=== PATIENT | female | born 1955 | race Caucasian/White ===

== ENCOUNTER 2020-04-07 18:15 | Inpatient (IN) | payer MEDICARE, MEDICAID ==
[~2020-04-07] VITALS: Ht 165.1 cm; Wt 62.5 kg
[2020-04-07] MEDS ORDERED: HYDRALAZINE HCL50 MG PO (18:34)
[2020-04-07] MEDS ORDERED: GLUCOPHAGE500 MG PO (18:34)
[2020-04-07] MEDS ORDERED: SEROQUEL25 MG PO (18:34)
[2020-04-07] MEDS ORDERED: ABILIFY10 MG PO (18:36)
[2020-04-07] MEDS ORDERED: ASPIRIN81 MG PO (18:36)
[2020-04-07] MEDS ORDERED: FLUTICASONE PRO16 GM NASAL (18:37)
[2020-04-07] MEDS ORDERED: LASIX40 MG PO (18:37)
[2020-04-07] MEDS ORDERED: LIPITOR10 MG PO (18:37)
[2020-04-07] MEDS ORDERED: POTASSIUM CHLO10 ME1 PO (18:38)
[2020-04-07] MEDS ORDERED: ZOFRAN4 MG PO (18:38)
[2020-04-07 20:00] VITALS: BP 133/70
[2020-04-07 20:43] LABS: BASOPHILS 0.9 % (0-2); EOSINOPHILS 0.3 % (0-7); HEMATOCRIT 33.2 % (36.0-48.0); HEMOGLOBIN 10.4 g/dL (12-16); IMMATURE GRANULOCYTES 0.4 % (0-5); LYMPHOCYTE ABS# 0.54 10x3/uL (1.18-3.74); LYMPHOCYTES 4.9 % (15-50); MCHC 31.3 g/dL (31.0-37.0); MCV 89.5 fL (80.0-100.0); MEAN PLATELET VOLUME 10.3 fL (7.4-10.4); MONOCYTES 9.1 % (2-11); NEUTROPHIL ABS# 9.22 10x3/uL (1.56-6.13); NEUTROPHILS 84.4 % (40-80); PLATELET COUNT 402 10x3/uL (130-400); RBC 3.71 10x6/uL (4.00-5.40); RDW 14.2 % (11.5-14.5); WBC 10.9 10x3/uL (4.8-10.8)
[2020-04-07 20:47] LABS: APTT 26.3 SECONDS (22.8-39.4); INR 1.28 (0.85-1.17); PROTIME 14.8 SECONDS (11.6-15.0)
[2020-04-07 21:00] VITALS: BP 124/55
[2020-04-07 21:09] LABS: ALBUMIN 3.5 g/dL (3.4-5.0); BILIRUBIN - TOTAL 0.3 mg/dL (0.2-1.3); CALCIUM 9.6 mg/dL (8.5-10.1); CREATININE - SERUM 11.1 mg/dL (0.6-1.3); MAGNESIUM - SERUM 3.1 mg/dL (1.8-2.4); PHOSPHOROUS 5.2 mg/dL (2.5-4.9); THYROID STIMULATING HORMONE 1.48 uIU/mL (0.36-3.74); TROPONIN-I 0.059 ng/mL (0.000-0.060)
[2020-04-07 21:11] LABS: ANION GAP 21.7 mmol/L (8-16)
[2020-04-07 21:12] LABS: POTASSIUM - SERUM 6.7 mmol/L (3.5-5.1)
[2020-04-07 22:00] VITALS: BP 122/68
[2020-04-07 23:00] VITALS: BP 133/70
[2020-04-07 23:36] LABS: UDS - AMPHET NEGATIVE QUAL (NEGATIVE); UDS - BARB NEGATIVE QUAL (NEGATIVE); UDS - BENZO NEGATIVE QUAL (NEGATIVE); UDS - COCAINE NEGATIVE QUAL (NEGATIVE); UDS - OPIATE NEGATIVE QUAL (NEGATIVE); UDS - PCP NEGATIVE QUAL (NEGATIVE); UDS - THC NEGATIVE QUAL (NEGATIVE)
[2020-04-07 23:44] LABS: BILIRUBIN NEGATIVE (NEGATIVE); KETONE NEGATIVE (NEGATIVE); NITRITE NEGATIVE (NEGATIVE); UROBILINOGEN NORMAL mg/dL (< 2)
[2020-04-07 23:45] LABS: BACTERIA MODERATE HPF (NONE SEEN); GRANULAR CAST 0-5 LPF (NONE SEEN); WHITE CELLS - URINE 50 HPF (0-4)
[2020-04-08] VITALS (21 sets, daily range): BP systolic 120–195; BP diastolic 67–100; BMI 21.6
[2020-04-08 07:22] LABS: % SATURATION 21 % (15-55); IRON 32 ug/dl (35-150); TOTAL IRON BIND CAPACITY 147 ug/dl (260-445); UNSAT IRON BIND CAPACITY 115 ug/dl (150-375)
[2020-04-08 07:27] LABS: BASOPHILS 0.9 % (0-2); EOSINOPHILS 0.3 % (0-7); HEMATOCRIT 29.2 % (36.0-48.0); HEMOGLOBIN 9.3 g/dL (12-16); IMMATURE GRANULOCYTES 0.6 % (0-5); LYMPHOCYTE ABS# 0.74 10x3/uL (1.18-3.74); LYMPHOCYTES 7.6 % (15-50); MCH 27.7 pg (26.0-34.0); MCHC 31.8 g/dL (31.0-37.0); MEAN PLATELET VOLUME 10.3 fL (7.4-10.4); MONOCYTES 14.1 % (2-11); NEUTROPHIL ABS# 7.41 10x3/uL (1.56-6.13); NEUTROPHILS 76.5 % (40-80); PLATELET COUNT 361 10x3/uL (130-400); RBC 3.36 10x6/uL (4.00-5.40); RDW 14.1 % (11.5-14.5); WBC 9.7 10x3/uL (4.8-10.8)
[2020-04-08 07:28] LABS: MCV 86.9 fL (80.0-100.0)
[2020-04-08 07:54] LABS: ALBUMIN 3.1 g/dL (3.4-5.0); BILIRUBIN - TOTAL 0.2 mg/dL (0.2-1.3); CALCIUM 9.5 mg/dL (8.5-10.1); CREATININE - SERUM 9.9 mg/dL (0.6-1.3); MAGNESIUM - SERUM 2.9 mg/dL (1.8-2.4); PHOSPHOROUS 3.9 mg/dL (2.5-4.9); PROTEIN - SERUM 6.9 g/dL (6.4-8.2); THYROID STIMULATING HORMONE 1.52 uIU/mL (0.36-3.74)
--- NOTE | 2020-04-08 07:56 | NUR ---
ATTEMPTED TO CALL REPORT, STATES NURSE WILL CALL WHEN SHE IS ABLE TO ACCEPT PATIENT.
--- NOTE | 2020-04-08 07:57 | NUR ---
CRITICAL LAB TAKEN FROM BETTIE, TROPONIN 1.963, BUN 144, CHLORIDE 124.
[2020-04-08 07:59] LABS: CARBON DIOXIDE 24.5 mmol/L (21.0-32.0); POTASSIUM - SERUM 5.5 mmol/L (3.5-5.1)
[2020-04-08 08:01] LABS: TROPONIN-I 1.963 ng/mL (0.000-0.060)
--- NOTE | 2020-04-08 12:23 | NUR ---
BOLUS COMPLETE. PATIENT RESTING IN BED, NAD, ORIENTED X 0.
--- NOTE | 2020-04-08 13:47 | NUR ---
GAVE REPORT TO LETY PALACIOS IN ICU. STOPPED REPORT AND STATES THAT SHE HAS A PATIENT IN NEED OF HER ATTENTION AND THAT I CAN BRING THE PATIENT AND "TELL HER ANYTHING ELSE AT BEDSIDE REPORT". CHARGE NOTIFIED, WILL GATHER PATIENT AND TAKE HER TO ICU AT THIS TIME.
[2020-04-08] MEDS ORDERED: HYDRALAZINE HCL50 MG PO (14:47)
[2020-04-08] MEDS ORDERED: SEROQUEL25 MG PO (14:50)
[2020-04-08] MEDS ORDERED: SEROQUEL XR50 MG PO (14:53)
[2020-04-08] MEDS ORDERED: ZOFRAN4 MG PO (14:56)
[2020-04-08] MEDS ORDERED: BAYER CHEWABLE81 MG PO (14:57)
[2020-04-08] MEDS ORDERED: ABILIFY10 MG PO (14:59)
[2020-04-08 15:27] LABS: CREATININE - URINE 42.4 mg/dL (30-125); PRO/CRE RATIO URINE 4.4 mg/g; PROTEIN - URINE 187.9 mg/dL (0.0-11.9)
--- NOTE | 2020-04-08 17:11 | NUR ---
1400- REC'D PT TO ICU, ALL MONITORING EQUIPMENT ATTACHED AND ALARMS SET. PT BATHED. VSS.
[2020-04-08 17:33] LABS: ANION GAP 19.7 mmol/L (8-16); CALCIUM 8.9 mg/dL (8.5-10.1); CARBON DIOXIDE 22.5 mmol/L (21.0-32.0); CREATININE - SERUM 9.1 mg/dL (0.6-1.3); POTASSIUM - SERUM 5.2 mmol/L (3.5-5.1)
--- NOTE | 2020-04-08 17:52 | NUR ---
REPORTED LABS/BUN AND NA+ TO DR BOWLING.
--- NOTE | 2020-04-08 19:30 | NUR ---
REC'D PT RESTING IN BED ON ROOM AIR EYES CLOSED, AWAKENS TO VERBAL STIMULI, SOME WORDS ARE CLEAR OTHERS SEEM GARBLED, PT IS CONFUSED, RIGHT WRIST PIV D5W @ 125CC/HR, COOPER PATENT DRAINING CLEAR YELLOW URINE, MAEE, FOLLOWS COMMANDS, BED IN LOW POSITION, CALL LIGHT IN REACH.
--- NOTE | 2020-04-08 21:00 | NUR ---
EVENING MEDS GIVEN, PT CUSSING AT NURSE WHILE ATTEMPTING TO PLACE BACTROBAN IN NARES, SWATTING AT HANDS.
--- NOTE | 2020-04-08 22:30 | NUR ---
PT PULLING GOWN OFF AND PULLING AT OTHER LINEN, LARGE LIQUID BROWN STOOL NOTED, PARTIAL BATH AND LINEN CHANGE PROVIDED, COOPER CARE GIVEN, PT TOLERATED WELL, REPOSITIONED FOR COMFORT, BP ELEVATED, WILL GIVE PRN BP MEDICATION.
[2020-04-09] VITALS (22 sets, daily range): BP systolic 117–190; BP diastolic 54–94; BMI 21.9
--- NOTE | 2020-04-09 03:30 | NUR ---
PT RESTING IN BED, EYES CLOSED, RESP EVEN AND UNLABORED, BP IMPROVED AFTER PRN DOSE, WILL CONT TO MONITOR FOR CHANGES.
[2020-04-09 05:26] LABS: BASOPHILS 1.1 % (0-2); EOSINOPHILS 2.4 % (0-7); HEMATOCRIT 27.9 % (36.0-48.0); HEMOGLOBIN 8.9 g/dL (12-16); IMMATURE GRANULOCYTES 1.2 % (0-5); LYMPHOCYTE ABS# 0.87 10x3/uL (1.18-3.74); LYMPHOCYTES 11.7 % (15-50); MCH 27.7 pg (26.0-34.0); MCHC 31.9 g/dL (31.0-37.0); MCV 86.9 fL (80.0-100.0); MEAN PLATELET VOLUME 10.4 fL (7.4-10.4); MONOCYTES 12.7 % (2-11); NEUTROPHIL ABS# 5.26 10x3/uL (1.56-6.13); NEUTROPHILS 70.9 % (40-80); PLATELET COUNT 310 10x3/uL (130-400); RBC 3.21 10x6/uL (4.00-5.40); RDW 14.2 % (11.5-14.5); WBC 7.4 10x3/uL (4.8-10.8)
[2020-04-09 05:39] LABS: ALBUMIN 2.6 g/dL (3.4-5.0); BILIRUBIN - TOTAL 0.19 mg/dL (0.2-1.3); CALCIUM 8.4 mg/dL (8.5-10.1); CREATININE - SERUM 8.3 mg/dL (0.6-1.3); MAGNESIUM - SERUM 2.3 mg/dL (1.8-2.4); PHOSPHOROUS 3.5 mg/dL (2.5-4.9)
[2020-04-09 05:40] LABS: ANION GAP 17.3 mmol/L (8-16); POTASSIUM - SERUM 4.3 mmol/L (3.5-5.1)
--- NOTE | 2020-04-09 08:00 | NUR ---
LABS IMPROVING. PT CONFUSED. VSS.
[2020-04-09 09:21] LABS: CKMB 4.3 U/L (0.0-3.6); CREATINE KINASE 298 UL (21-215)
[2020-04-09 09:23] LABS: TROPONIN-I 4.599 ng/mL (0.000-0.060)
[2020-04-09 15:20] LABS: CKMB 3.6 U/L (0.0-3.6); CREATINE KINASE 333 UL (21-215)
[2020-04-09 15:28] LABS: TROPONIN-I 3.595 ng/mL (0.000-0.060)
--- NOTE | 2020-04-09 15:28 | NUR ---
PT STAYING ASLEEP ALL DAY. CHANGED SEROQUEL TO HS.
[2020-04-09 20:44] LABS: CKMB 2.4 U/L (0.0-3.6); CREATINE KINASE 310 UL (21-215)
[2020-04-09 20:46] LABS: TROPONIN-I 1.828 ng/mL (0.000-0.060)
[2020-04-10] VITALS (24 sets, daily range): BP systolic 109–173; BP diastolic 49–97
[2020-04-10 06:12] LABS: BASOPHILS 0.8 % (0-2); EOSINOPHILS 1.6 % (0-7); HEMATOCRIT 29.3 % (36.0-48.0); HEMOGLOBIN 9.2 g/dL (12-16); IMMATURE GRANULOCYTES 1.7 % (0-5); LYMPHOCYTES 17.4 % (15-50); MCH 27.4 pg (26.0-34.0); MCHC 31.4 g/dL (31.0-37.0); MCV 87.2 fL (80.0-100.0); MEAN PLATELET VOLUME 10.9 fL (7.4-10.4); MONOCYTES 11.2 % (2-11); NEUTROPHIL ABS# 4.27 10x3/uL (1.56-6.13); NEUTROPHILS 67.3 % (40-80); PLATELET COUNT 293 10x3/uL (130-400); RBC 3.36 10x6/uL (4.00-5.40); WBC 6.3 10x3/uL (4.8-10.8)
[2020-04-10 06:16] LABS: ALBUMIN 2.6 g/dL (3.4-5.0); ANION GAP 13.9 mmol/L (8-16); BILIRUBIN - TOTAL 0.17 mg/dL (0.2-1.3); CALCIUM 8.5 mg/dL (8.5-10.1); CREATININE - SERUM 7.1 mg/dL (0.6-1.3); PHOSPHOROUS 3.5 mg/dL (2.5-4.9); POTASSIUM - SERUM 3.9 mmol/L (3.5-5.1)
--- NOTE | 2020-04-10 11:16 | NUR ---
AM MEDS GIVEN IN APPLESAUCE WITHOUT DIFFICULTY, ATE EGGS WITH BREAKFAST, DISCUSSED WITH DR BOWLING THAT PT HAD NO DIFFICULTY SWALLOWING BUT DID SPIT FOOD OUT AT TIMES, MECH SOFT DIET ORDERED FOR LUNCH DURING CHG BATH PT BEGAN COUGHING ON ORAL SECRETIONS, ORAL SUCTIONING PROVIDED AND SPEECH CONSULTED
--- NOTE | 2020-04-10 18:01 | NUR ---
1530 PIV NOTED TO BE LEAKING AROUND SITE, DCD AND RESITED TO LAC
[2020-04-11] VITALS (17 sets, daily range): BP systolic 110–184; BP diastolic 54–95
--- NOTE | 2020-04-11 03:18 | NUR ---
PT UNABLE TO SLEEP. CONFUSED AND PULLING OFF MONITORING EQUIPMENT. ATTEMPT TO REORIENT UNSUCCESSFULLY. PT THINKS SHE IS AT SOMEONES HOME AND THAT THE PERSON THAT BROUGHT HER LEFT HER HERE AND LEFT WITHOUT HER. PT HAS EATEN ONE PUDDING, PER REQUEST.
[2020-04-11 04:33] LABS: BASOPHILS 0.9 % (0-2); EOSINOPHILS 1.9 % (0-7); HEMATOCRIT 27.7 % (36.0-48.0); HEMOGLOBIN 8.9 g/dL (12-16); LYMPHOCYTE ABS# 1.21 10x3/uL (1.18-3.74); LYMPHOCYTES 20.6 % (15-50); MCH 27.7 pg (26.0-34.0); MCHC 32.1 g/dL (31.0-37.0); MCV 86.3 fL (80.0-100.0); MEAN PLATELET VOLUME 10.2 fL (7.4-10.4); MONOCYTES 7.2 % (2-11); NEUTROPHIL ABS# 4.02 10x3/uL (1.56-6.13); NEUTROPHILS 68.4 % (40-80); PLATELET COUNT 245 10x3/uL (130-400); RBC 3.21 10x6/uL (4.00-5.40); RDW 13.7 % (11.5-14.5); WBC 5.9 10x3/uL (4.8-10.8)
--- NOTE | 2020-04-11 04:59 | NUR ---
PT PULLED LEFT AC IV OUT. FLUIDS STOPPED AND FLOOR DRIED. ATTEMPT X1 MADE TO PLACE IV UNSUCCESSFUL DUE TO PT CONFUSION AND BECOMING AGITATED, WILL REATTEMPT WHEN PT CALM.
[2020-04-11 05:17] LABS: ALBUMIN 2.7 g/dL (3.4-5.0); ANION GAP 14.5 mmol/L (8-16); BILIRUBIN - TOTAL 0.11 mg/dL (0.2-1.3); CALCIUM 8.5 mg/dL (8.5-10.1); CARBON DIOXIDE 22.3 mmol/L (21.0-32.0); CREATININE - SERUM 6.5 mg/dL (0.6-1.3); PHOSPHOROUS 4.3 mg/dL (2.5-4.9); POTASSIUM - SERUM 3.8 mmol/L (3.5-5.1); PROTEIN - SERUM 6.1 g/dL (6.4-8.2)
--- NOTE | 2020-04-11 07:17 | NUR ---
IV REATTEMPTED WITHOUT SUCCESS. ON COMING STAFF MADE AWARE.
--- NOTE | 2020-04-11 10:00 | NUR ---
SPOKE W/ DAVID SAM, W/ NEPHRO. PT PULLED HER IV OUT OVERNIGHT AND HAS IV ROCEPHIN ORDERED. SHE OKS IV OUT AND ORDERS PO ABX FOR SUSPECTED UTI.
--- NOTE | 2020-04-11 11:32 | NUR ---
DR. HARESH ARRIAGA. D/C TO [place]LOOR VS D/C BACK TO [place]. REPORTS HE WILL CALL HER DAUGHTER TO DECIDE.
--- NOTE | 2020-04-11 14:30 | CN ---
PATIENT NAME:KRISTI WRIGHT MEDICAL RECORD: [id number] : 59 LOCATION:BREA.2307 ADMIT DATE: 04/07/20 ACCOUNT: [id number] CONSULTING PHYSICIAN: CODI SETHI MD REFERRING PHYSICIAN: SPIKE DANG MD DATE OF CONSULTATION: 04/10/2020 HISTORY OF PRESENT ILLNESS: A 64-year-old female with a history of chronic renal insufficiency, resident of long-term care facility, was transferred from [place] with altered mental status, was found to have worsening renal insufficiency as well as non-ST elevation myocardial infarction with elevated troponin. She has history of hypertension, poor historian, questionable chest pain. We are asked to see her concerning her cardiovascular status. PAST MEDICAL HISTORY: Includes; 1. History of chronic renal insufficiency. 2. Hypertension. 3. Bipolar disorder. 4. Schizophrenia. 5. Dyslipidemia. MEDICATIONS: Include atorvastatin 10 mg p.o. every day, hydralazine 50 b.i.d., Seroquel 12.5 every day, Abilify 10 mg p.o. every day, aspirin 81 every day, Lasix 40 every day, metformin 500 b.i.d. SOCIAL HISTORY: Lives in a long-term care facility, nonsmoker, nondrinker. PHYSICAL EXAMINATION: GENERAL: No acute distress, appears stated age. VITAL SIGNS: Blood pressure 172/97, pulse 92 and regular. HEENT: Normocephalic, atraumatic. NECK: No bruits noted. HEART: Regular, II/ systolic ejection murmur. LUNGS: Actually, good air excursion. ABDOMEN: Soft, nontender. EXTREMITIES: Pulses are well preserved, 2+. There was no edema. IMPRESSION AND PLAN: Non-ST elevation myocardial infarction, difficult to assess if this is type 1 versus type 2. Certainly, the patient has refused dialysis in the past and contrast carries at this creatinine level significant risk of contrast nephropathy. Empirically placed on beta blockade, antiplatelets. Depending on further situation, i.e., dialysis could consider angiography with intervention at that point. TRANSINT:[id number] Voice Confirmation ID: [id number] DOCUMENT ID: [id number] CODI SETHI MD at 1430 CC: [id number] DICTATION DATE: 04/10/20 1015 COFFEE MAKER: 04/10/20 1322 ADM IN [facility] [address] [facility] [place] [address]
--- NOTE | 2020-04-11 14:30 | EC ---
PATIENT:KRISTI WRIGHT DATE OF SERVICE: 04/07/20 SEX: F MEDICAL RECORD: [id number] DATE OF : 59 LOCATION:[facility] D230 AGE OF PATIENT: 64 ADMISSION DATE: 04/07/20 REFERRING PHYSICIAN: INTERPRETING PHYSICIAN: CODI SETHI MD ECHOCARDIOGRAM REPORT ECHO CHARGES 4 ECHO COMPLETE Date: 04/10/20 CLINICAL DIAGNOSIS: CMP ECHOCARDIOGRAPHIC MEASUREMENTS (adult normal given) AC root (d.<3.7cm) 2.6 cm LV Septum d (<1.2 cm> 1.2 cm Valve Excursion 1.6 cm LV Septum (systole) 1.6 cm Left Atria (s.<4.0cm> 3.6 cm LVPW d(<1.2cm) 0.9 cm RV (d.<2.3cm) 2.2 cm LVPW (sytole) 1.1 cm LV diastole(<5.6CM) 5.2 cm MV E-F(>70mm/sec) cm LV systole 4.4 cm LVOT Diameter 1.8 cm MV exc.(>10mm) 1.0 cm Est.ejection fraction (50-75%) % DOPPLER: LVIT cm/sec A 113 cm/sec E 65 cm/sec LA 81 cm/sec RVSP 21 mmHg LVOT cm/sec AOP1/2T m/s Asc. Ao 116 cm/sec RVOT 83 cm/sec RA cm/sec PA 101 cm/sec AV Gradient Peak 5.4 mmHg AV Mean 2.9 mmHg AV Area 1.7 cm MV Gradient Peak 7.1 mmHg MV Mean 2.5 mmHg MV Area cm COMMENTS: Senior Sql Database Developer: Ya INIGUEZANGIE ABISAI Preforming Machine Operator: 3 Dr. Nolasco TAPE# Pericardial Effusion N DATE OF SERVICE: Adequate 2D, color flow imaging, spectral Doppler, and M-Mode. LVH is present. LV internal dimensions are normal. Wall motion normal. EF greater than or equal to 55%. Aortic valve is tricuspid. No evidence of stenosis by Doppler interrogation. Left atrium is normal at 3.6 cm. Mitral valve shows no prolapse. Trace MR. Right-sided chambers are grossly normal. Trace TR. ECHOCARDIOGRAM REPORT [id number] KRISTI WRIGHT TRANSINT:[id number] Voice Confirmation ID: [id number] DOCUMENT ID: [id number] CODI SETHI MD at 1430 CC: [id number] DICTATION DATE: 04/10/20 1638 CLINICAL BIOCHEMIST: 04/10/20 2321 ADM IN [place] [id number] [place] [id number]
--- NOTE | 2020-04-11 18:51 | MORECARE ---
CASE MANAGEMENT DISCHARGE SUMMARY PATIENT: KRISTI WRIGHT UNIT: [id number] ADM DATE: 04/07/20 AGE: 64 : 59 SEX: F ROOM/BED: D.2307 AUTHOR: REGINO ALEXANDER PHYSICIAN: REFERRING PHYSICIAN: SPIKE DANG MD DATE OF SERVICE: 04/11/20 Discharge Plan Patient Name: KRISTI WRIGHT Facility: [facility]:[place] : 1955 Planned Disposition: [facility] Facility Anticipated Discharge Date: Discharge Date: Expected LOS: Initial Reviewer: [email or web address] Initial Review Date: 04/07/2020 Generated: 04/11/20 7:50 pm Patient Name: KRISTI WRIGHT Page [phone] at 1851 All edits/amendments must be made on the electronic document DICTATION DATE: 04/11/201849 CELERY STRIPPER: KASIE 04/11/201849 RPT#: [id number] DC DATE: STATUS: ADM IN [facility] [address] [place] [address] END OF REPORT
--- NOTE | 2020-04-11 19:04 | MORECARE ---
CASE MANAGEMENT DISCHARGE SUMMARY PATIENT: KRISTI WRIGHT UNIT: [id number] ADM DATE: 04/07/20 AGE: 64 : 59 SEX: F ROOM/BED: D.2307 AUTHOR: REGINO ALEXANDER PHYSICIAN: REFERRING PHYSICIAN: SPIKE DANG MD DATE OF SERVICE: 04/11/20 Discharge Plan Patient Name: KRISTI WRIGHT Facility: [facility]:[place] : 1955 Planned Disposition: Senior Living Facility Anticipated Discharge Date: Discharge Date: Expected LOS: Initial Reviewer: [email or web address] Initial Review Date: 04/07/2020 Generated: 04/11/20 8:03 pm Comments DCP- Discharge Planning Updated by [email or web address]: Cheryl Rosado on 04/11/20 6:[address] Patient Name: KRISTI WRIGHT Admission Status: ER Accout number: [id number] Admission Date: 04-07-2020 : 1955 Admission Diagnosis:ACUTE KIDNEY FAILURE, UNSPECIFIED Attending: SPIKE CORBETT Current LOS: 4 Anticipated DC Date: Planned Disposition: Senior Living Facility Primary Insurance: MEDICARE PART A ONLY Discharge Planning Comments: CM called and spoke with patient's daughter about discharge planning. CM explained that the physicians have attempted to call her, but were not able to leave her a voice message because her voice mail box is full. Daughter states that patient was just recently admitted to [facility] for rehab. States patient just recently became confused. Daughter states she is a Psychiatrist and knows the difference between Dementia and Delirium and the course of treatment for both conditions. States that if her mother has Dementia it is in the early stages. States she believes the patient is suffering from Delirium. States that patient's current state of confusion is not her baseline. States patient was still able to give people the daughter's phone number from memory just two weeks ago. Daughter went on to explain that she thinks the patient is over medicated. States that the patient was not taking her mediations. That she was hiding them in her bed. And that because she was not responding to the current dosage of her medications that the hospital increased the dosage. States the rehab discovered the patient was hiding her medications so they started crushing the patient's medications and put them in her food. States that because the patient hadn't taken her mediations in so long and that the dosage had been increased over the course of treatment at the hospital this may have caused the patient to be over-medicated. States that is also why the patient started refusing to eat at the rehab, because they were putting her medication in her food. Daughter would like to speak with patient's renal doctor and with Dr. Lima tomorrow if at all possible to discuss her care. States she has an appointment from 11-11:45 and another at 15:30. But any time other than that will be acceptable. Daughter, Dr. Laya Alfred may be reached at [phone]. Daughter has also informed CM that when patient is medically stable and ready for discharge from the hospital that she wants patient moved to a SNF closer to [place] so she won't be as far away from where daughter lives. SUPRIYA completed for "Any SNF close to [place]". Copy on chart. CM will continue to follow and assist as needed with discharge planning / needs. Car Salesman: Cheryl Rosado Last DP export: 04/11/20 5:51 p Patient Name: KRISTI WRIGHT Page [phone] at 1904 All edits/amendments must be made on the electronic document DICTATION DATE: 04/11/201903 STREETCAR DISPATCHER: KASIE 04/11/201903 RPT#: [id number] DC DATE: STATUS: ADM IN [facility] [address] [place] [address] END OF REPORT
[2020-04-12] VITALS (10 sets, daily range): BP systolic 102–167; BP diastolic 61–98
[2020-04-12 05:15] LABS: BASOPHILS 0.6 % (0-2); EOSINOPHILS 3.5 % (0-7); HEMATOCRIT 28.2 % (36.0-48.0); HEMOGLOBIN 9.1 g/dL (12-16); IMMATURE GRANULOCYTES 0.3 % (0-5); LYMPHOCYTE ABS# 0.78 10x3/uL (1.18-3.74); LYMPHOCYTES 12.3 % (15-50); MCH 27.5 pg (26.0-34.0); MCHC 32.3 g/dL (31.0-37.0); MCV 85.2 fL (80.0-100.0); MEAN PLATELET VOLUME 10.6 fL (7.4-10.4); MONOCYTES 9.6 % (2-11); NEUTROPHIL ABS# 4.67 10x3/uL (1.56-6.13); NEUTROPHILS 73.7 % (40-80); PLATELET COUNT 257 10x3/uL (130-400); RBC 3.31 10x6/uL (4.00-5.40); RDW 13.6 % (11.5-14.5); WBC 6.3 10x3/uL (4.8-10.8)
[2020-04-12 05:37] LABS: ALBUMIN 2.9 g/dL (3.4-5.0); BILIRUBIN - TOTAL 0.18 mg/dL (0.2-1.3); CALCIUM 8.5 mg/dL (8.5-10.1); CARBON DIOXIDE 22.6 mmol/L (21.0-32.0); CREATININE - SERUM 5.8 mg/dL (0.6-1.3); PHOSPHOROUS 4.3 mg/dL (2.5-4.9); POTASSIUM - SERUM 3.6 mmol/L (3.5-5.1); PROTEIN - SERUM 6.4 g/dL (6.4-8.2)
--- NOTE | 2020-04-12 10:03 | NUR ---
Nutrition follow-up: Pt discussed during IDT team meeting Pt sound asleep Labs reviewed WT: 136# Diet order: consistent CHO puree PO intake poor at this time Will provide food choices with selective menus and honor food preferences within diet restrictions. Per family, pt was not eating good at the OR. Recommendations: Appetite stimulant If po intake remains poor will need to begin nutrition support; NGT vs PEG tube with TF of Suplena @ goal rate of 40 ml/hr RDN will follow-up: 04/14/20
--- NOTE | 2020-04-12 20:17 | NUR ---
STARTED PT ON FIRST DIALYSIS TX. IMMEDIATELY REVERSED LINES ARTERIAL ALARM WENT OFF FIRST THING. WITHIN 20 MINUTES PT MOVING AND STARTED TO CAUSE ARTERIAL ALARM TO BEEP FROM TURNING HEAD. REVERSED LINES AGAIN AND IT WAS WORSE. TEXTED DR PYLE AND LET HIM KNOW ABOUT SITUATION. LINES DRAW AND FLUSH WELL. POSITIONAL. WAS TOLD TO STOP TX.
[2020-04-13] VITALS (7 sets, daily range): BP systolic 106–178; BP diastolic 58–81
[2020-04-13 04:43] LABS: BASOPHILS 0.4 % (0-2); EOSINOPHILS 1.7 % (0-7); HEMATOCRIT 26.9 % (36.0-48.0); HEMOGLOBIN 8.6 g/dL (12-16); IMMATURE GRANULOCYTES 0.2 % (0-5); LYMPHOCYTE ABS# 0.69 10x3/uL (1.18-3.74); LYMPHOCYTES 14.6 % (15-50); MCH 27.4 pg (26.0-34.0); MCV 85.7 fL (80.0-100.0); MEAN PLATELET VOLUME 11.2 fL (7.4-10.4); MONOCYTES 10.6 % (2-11); NEUTROPHIL ABS# 3.42 10x3/uL (1.56-6.13); NEUTROPHILS 72.5 % (40-80); PLATELET COUNT 207 10x3/uL (130-400); RBC 3.14 10x6/uL (4.00-5.40); RDW 13.7 % (11.5-14.5)
[2020-04-13 04:53] LABS: ALBUMIN 2.6 g/dL (3.4-5.0); ANION GAP 15.6 mmol/L (8-16); BILIRUBIN - TOTAL 0.24 mg/dL (0.2-1.3); CALCIUM 8.1 mg/dL (8.5-10.1); CARBON DIOXIDE 22.8 mmol/L (21.0-32.0); CREATININE - SERUM 4.7 mg/dL (0.6-1.3); PHOSPHOROUS 4.4 mg/dL (2.5-4.9); POTASSIUM - SERUM 3.4 mmol/L (3.5-5.1); WBC 4.7 10x3/uL (4.8-10.8)
--- NOTE | 2020-04-13 08:54 | CN ---
PATIENT NAME:KRISTI WRIGHT MEDICAL RECORD: [id number] : 59 LOCATION:CORYD.2307 ADMIT DATE: 04/07/20 ACCOUNT: [id number] CONSULTING PHYSICIAN: ALEXA VILCHIS MD REFERRING PHYSICIAN: SPIKE DANG MD DATE OF CONSULTATION: 04/12/2020 IDENTIFYING DATA: The patient is 64 years old and she is admitted to the hospital secondary to renal failure. CHIEF COMPLAINT: None. HISTORY OF PRESENT ILLNESS: The patient is acutely ill and in the intensive care unit. She has history of chronic mental illness and has been diagnosed with schizophrenia. She is having some confusion that is likely associated with her underlying medical issues and not related to her mental illness. She denies that she would seek to harm herself or others. ASSESSMENT: Schizophrenia. PLAN: The patient will be maintained on Zyprexa for its antipsychotic effect. She should have follow up with her primary care physician and outpatient psychiatrist once she is discharged. TRANSINT:[id number] Voice Confirmation ID: [id number] DOCUMENT ID: [id number] ALEXA VILCHIS MD at 0854 CC: [id number] DICTATION DATE: 04/12/20 1619 SCLEROSCOPE TESTER: 04/13/20 0038 ADM IN [place] [id number] [place] [address]
[2020-04-13 14:11] LABS: HEPATITIS C ANTIBODY <0.1 S/CO RAT (0.0-0.9)
--- NOTE | 2020-04-13 20:39 | NUR ---
Pt transfered to 2219, no acute distress noted. Assessment per flow sheet.
--- NOTE | 2020-04-13 22:10 | NUR ---
PATIENT WAS RECEIVED FROM ICU AT 2100 VIA BED. SHE WAS ASSESSED AND MADE COMFORTABLE WITH CALL LIGHT IN PLACE AND BED ALARM TO BED. SHE REMAINS PLEASANTLY CONFUSED AND COOPERATIVE.
[2020-04-14] VITALS: BP 151/66
[2020-04-14 04:00] VITALS: BP 142/63
--- NOTE | 2020-04-14 05:24 | NUR ---
PT HAS RESTED QUIET WITH TURNING PER STAFF AND SELF TO KEEP HER COMFORTABLE. AT TIME OF EMPTYING THE COOPER IT WAS NOTICED THERE WAS BLOOD ON HER BED. UPON CHECKING PT, SHE HAD PULLED OUT HER TRIALYSIS CATH AND IT HAD BLED . WE CHANGED THE SHEETS AND PLACED A BANDAGE ON IT. THE CATH CAME OUT INTACT.
[2020-04-14 08:33] VITALS: BP 128/56
[2020-04-14 12:20] LABS: BASOPHILS 0.5 % (0-2); EOSINOPHILS 1.7 % (0-7); HEMATOCRIT 23.6 % (36.0-48.0); HEMOGLOBIN 7.6 g/dL (12-16); IMMATURE GRANULOCYTES 0.3 % (0-5); LYMPHOCYTE ABS# 0.77 10x3/uL (1.18-3.74); MCH 27.5 pg (26.0-34.0); MCHC 32.2 g/dL (31.0-37.0); MCV 85.5 fL (80.0-100.0); MEAN PLATELET VOLUME 10.9 fL (7.4-10.4); MONOCYTES 10.3 % (2-11); NEUTROPHIL ABS# 4.38 10x3/uL (1.56-6.13); NEUTROPHILS 74.2 % (40-80); PLATELET COUNT 171 10x3/uL (130-400); RBC 2.76 10x6/uL (4.00-5.40); RDW 13.7 % (11.5-14.5)
[2020-04-14 12:21] LABS: WBC 5.9 10x3/uL (4.8-10.8)
--- NOTE | 2020-04-14 12:25 | NUR ---
PT HAVING DIFFICULTY SWALLOWING, COUGHED THIS AM WITH MORNING MEDS, PT HAS TO BE COACHED TO SWALLOW AND DRINK
[2020-04-14 12:30] VITALS: BP 146/56
[2020-04-14 12:46] LABS: ALBUMIN 2.5 g/dL (3.4-5.0); ANION GAP 15.8 mmol/L (8-16); BILIRUBIN - TOTAL 0.29 mg/dL (0.2-1.3); CALCIUM 7.5 mg/dL (8.5-10.1); CARBON DIOXIDE 22.5 mmol/L (21.0-32.0); POTASSIUM - SERUM 3.3 mmol/L (3.5-5.1); PROTEIN - SERUM 5.2 g/dL (6.4-8.2)
--- NOTE | 2020-04-14 14:23 | NUR ---
Nutrition follow-up: Pt receiving a consistent CHO puree diet with thin liquids PO intake continues to be poor; nurse reports pt struggling with swallow and has to be qued to swallow. Daily dialysis until mentality better Wt: 137# Recommendations: - Another swallow evaluation due to nurse reporting swallowing issues May need to consider nutrition support - NGT placement vs PET tube placement RDN will follow-up: 04/17/20
[2020-04-14 16:52] VITALS: BP 166/69
--- NOTE | 2020-04-14 17:06 | NUR ---
STATED IN PAST NOTES PT HAS HISTORY OF DM TYPE 2 WITH MULTIPLE ER ADMISSIONS R/T DISEASE, [facility] PERFORMED WITH BG OF 123
[2020-04-14 18:20] LABS: HEMATOCRIT 23.8 % (36.0-48.0); HEMOGLOBIN 7.7 g/dL (12-16)
--- NOTE | 2020-04-14 18:31 | NUR ---
UNABLE TO SCREEN PATIENT. ASKED PATIENT IF SHE EVER HAD ANY SURGERIES AND PATIENT STATED THAT SHE DID NOT KNOW. ATTEMPTED TO CALL PATIENT'S DAUGHTER. WENT TO VOICE MAIL BUT WOULD NOT ACCEPT MESSAGES BECAUSE SAID VOICE MAILBOX WAS FULL. NOTIFIED NURSE JARET. WILL TRY AGAIN TOMORROW.
--- NOTE | 2020-04-14 18:56 | NUR ---
URINE COLLECTED FROM CATHETER AND DELIVERED TO LAB
[2020-04-14 20:06] LABS: BILIRUBIN NEGATIVE (NEGATIVE); KETONE SMALL mg/dL (NEGATIVE); NITRITE NEGATIVE (NEGATIVE); UROBILINOGEN NORMAL mg/dL (< 2)
[2020-04-14 20:08] LABS: BACTERIA MODERATE HPF (NONE SEEN); SQUAMOUS EPITHELIAL 0-5 HPF (0-4); WHITE CELLS - URINE OCC HPF (0-4)
[2020-04-14 20:16] VITALS: BP 179/72
--- NOTE | 2020-04-15 00:12 | NUR ---
patient resting in bed. no pain nor distress noted. bed in lowest position. bed alarm activated. call dominguez light in reach and reeducated on to call for help. johnson bag below bladder, off of the floor and draining.
[2020-04-15 01:19] VITALS: BP 186/58
[2020-04-15 05:36] VITALS: BP 176/67
[2020-04-15 05:54] LABS: BASOPHILS 0.3 % (0-2); EOSINOPHILS 1.7 % (0-7); HEMATOCRIT 22.9 % (36.0-48.0); HEMOGLOBIN 7.6 g/dL (12-16); IMMATURE GRANULOCYTES 0.5 % (0-5); LYMPHOCYTE ABS# 1.24 10x3/uL (1.18-3.74); LYMPHOCYTES 21.2 % (15-50); MCH 27.7 pg (26.0-34.0); MCHC 33.2 g/dL (31.0-37.0); MCV 83.6 fL (80.0-100.0); MEAN PLATELET VOLUME 10.8 fL (7.4-10.4); MONOCYTES 9.9 % (2-11); NEUTROPHIL ABS# 3.87 10x3/uL (1.56-6.13); NEUTROPHILS 66.4 % (40-80); RBC 2.74 10x6/uL (4.00-5.40); RDW 13.3 % (11.5-14.5); WBC 5.8 10x3/uL (4.8-10.8)
[2020-04-15 05:55] LABS: PLATELET COUNT 228 10x3/uL (130-400)
--- NOTE | 2020-04-15 06:15 | NUR ---
PT WAS MORE CONFUSED THE NIGHT WENT ON. SAYING SHE HAD TO GET UP AND GO TO THE STORE. NOT AWARE OF WHERE SHE IS. PT HAD A BM EARLIER THIS MORNING. CURRENTLY RESTING IN BED. BED IN LOW POSITION. BED ALARM ACTIVATED. CALL AMANDA LIGHT IN REACH.
[2020-04-15 06:51] LABS: ALBUMIN 2.5 g/dL (3.4-5.0); ANION GAP 14.3 mmol/L (8-16); BILIRUBIN - TOTAL 0.26 mg/dL (0.2-1.3); CALCIUM 7.7 mg/dL (8.5-10.1); CARBON DIOXIDE 23.7 mmol/L (21.0-32.0); CREATININE - SERUM 4.6 mg/dL (0.6-1.3); PROTEIN - SERUM 5.8 g/dL (6.4-8.2)
[2020-04-15 08:22] VITALS: BP 148/67
[2020-04-15 11:54] VITALS: BP 155/65
--- NOTE | 2020-04-15 12:17 | NUR ---
PT REFUSED RADIOLOGY FOR HEAD MRI
--- NOTE | 2020-04-15 12:22 | NUR ---
DAUGHTER OF PATIENT DID NOT KNOW PATIENT'S HEALTH HISTORY ENOUGH TO SCREEN. CALLED DR. MARTINEZ CLEARED THE PATIENT FOR MRI. PATIENT REFUSED MRI. INFORMED DAVID RODRIGUEZ FOR PIGEON FANCIER. PATIENT REFUSED MRI AGAIN. JENNIFER CANCELLED MRI. CALLED DR OSULLIVAN TO INFORM HIM THAT PATIENT REFUSED MRI BUT NO ANSWER.
[2020-04-15 17:05] VITALS: BP 164/64
--- NOTE | 2020-04-15 19:08 | NUR ---
RECEIVED REPORT, ASSUMED CARE, BREATHING EVEN UNLABORED, CALL LIGHT IN REACH, NO S/S OF DISTRESS NOTED, DENIES NEEDS, IV PATENT, ENCOURAGED PT TO NOTIFY STAFF OF ANY NEEDS, SLEEPING, RYLAN ALARM ON
[2020-04-15 21:51] VITALS: BP 158/71
[2020-04-16 01:25] VITALS: BP 173/75
[2020-04-16 05:47] VITALS: BP 180/65
[2020-04-16 06:44] LABS: ALBUMIN 2.5 g/dL (3.4-5.0); ANION GAP 12.8 mmol/L (8-16); BILIRUBIN - TOTAL 0.21 mg/dL (0.2-1.3); CALCIUM 7.4 mg/dL (8.5-10.1); CARBON DIOXIDE 22.8 mmol/L (21.0-32.0); CREATININE - SERUM 4.7 mg/dL (0.6-1.3); MAGNESIUM - SERUM 1.9 mg/dL (1.8-2.4); POTASSIUM - SERUM 3.6 mmol/L (3.5-5.1); PROTEIN - SERUM 5.3 g/dL (6.4-8.2)
--- NOTE | 2020-04-16 06:54 | NUR ---
I have reviewed this patient and I concur with the Shift Assessment completed by the Licensed Practical Nurse today this shift.
[2020-04-16 07:31] LABS: BASOPHILS 0.4 % (0-2); HEMATOCRIT 23.6 % (36.0-48.0); HEMOGLOBIN 7.9 g/dL (12-16); IMMATURE GRANULOCYTES 0.4 % (0-5); LYMPHOCYTES 16.3 % (15-50); MCH 27.9 pg (26.0-34.0); MCHC 33.5 g/dL (31.0-37.0); MCV 83.4 fL (80.0-100.0); MEAN PLATELET VOLUME 10.4 fL (7.4-10.4); MONOCYTES 9.8 % (2-11); NEUTROPHIL ABS# 3.54 10x3/uL (1.56-6.13); NEUTROPHILS 72.1 % (40-80); PLATELET COUNT 227 10x3/uL (130-400); RBC 2.83 10x6/uL (4.00-5.40); RDW 13.3 % (11.5-14.5); WBC 4.9 10x3/uL (4.8-10.8)
--- NOTE | 2020-04-16 09:11 | NUR ---
PT REFUSED PO MEDICATIONS, IV PEPCID GIVEN, PT HAS WET COUGH, LUNGS SOUNDS ARE CLEAR
[2020-04-16 12:43] VITALS: BP 172/66
[2020-04-16 16:35] VITALS: BP 172/75
[2020-04-16 20:51] VITALS: BP 172/85
[2020-04-17 00:47] VITALS: BP 118/73
[2020-04-17 06:36] VITALS: BP 165/69
[2020-04-17 07:07] LABS: BASOPHILS 0.3 % (0-2); EOSINOPHILS 0.3 % (0-7); IMMATURE GRANULOCYTES 0.9 % (0-5); LYMPHOCYTE ABS# 0.68 10x3/uL (1.18-3.74); LYMPHOCYTES 19.7 % (15-50); MCH 27.4 pg (26.0-34.0); MCHC 32.6 g/dL (31.0-37.0); MCV 83.9 fL (80.0-100.0); MEAN PLATELET VOLUME 9.3 fL (7.4-10.4); MONOCYTES 12.7 % (2-11); NEUTROPHIL ABS# 2.29 10x3/uL (1.56-6.13); NEUTROPHILS 66.1 % (40-80); PLATELET COUNT 262 10x3/uL (130-400); RBC 2.74 10x6/uL (4.00-5.40); RDW 13.2 % (11.5-14.5)
[2020-04-17 07:19] LABS: HEMOGLOBIN 7.5 g/dL (12-16); WBC 3.5 10x3/uL (4.8-10.8)
[2020-04-17 08:00] VITALS: BP 159/59
[2020-04-17 08:00] LABS: ALBUMIN 2.1 g/dL (3.4-5.0); ANION GAP 15.1 mmol/L (8-16); BILIRUBIN - TOTAL 0.14 mg/dL (0.2-1.3); CALCIUM 7.6 mg/dL (8.5-10.1); CARBON DIOXIDE 20.3 mmol/L (21.0-32.0); CREATININE - SERUM 4.7 mg/dL (0.6-1.3); MAGNESIUM - SERUM 1.6 mg/dL (1.8-2.4); POTASSIUM - SERUM 3.4 mmol/L (3.5-5.1); PROTEIN - SERUM 5.6 g/dL (6.4-8.2)
--- NOTE | 2020-04-17 09:30 | NUR ---
PATIENT ALLOWED ME TO FEED HER PUDDING WITH PILLS, DRANK ALL OF HER APPLE JUICE AND THEN STATED SHE DIDN'T WANT ANYMORE. PATIENT TOOK ONE BITE OF HER SUASAGE AND BISCUIT AND SPIT IT OUT. WILL CONTINUE WITH PLAN OF CARE AND TRY AND GET PATIENT TO EAT MORE
[2020-04-17 12:00] VITALS: BP 130/60
--- NOTE | 2020-04-17 13:44 | NUR ---
PATIENT LAYING IN BD WITH BLANKET OVER HER HEAD, REFUED LUNCH, WHEN TRYING TO UNCOVER PATIENT SHE GETS MAD. WILL CONTIUE WITH PLAN OF CARE
[2020-04-17 15:00] VITALS: BP 142/73
--- NOTE | 2020-04-17 15:21 | NUR ---
Nutrition follow-up: Diet order: Consistent CHO puree with thin liquids PO intake poor at this time due to continued confusion per nursing Labs reviewed WT: 137# Pt is also refusing medication May need to consider nutrition support - PEG tube vs NGT placement and TF due to pts poor po intake and confusion RDN follow-up: 04/20/20
--- NOTE | 2020-04-17 17:00 | NUR ---
I have reviewed this patient and I concur with the Shift Assessment completed by the Licensed Practical Nurse today this shift.
--- NOTE | 2020-04-17 19:00 | NUR ---
BEDSIDE REPORT RECEIVED AND CARE OF PT ASSUMED. PT LYING IN LOW VALERA'S POSITION. IV TO RIGHT FA PATENT WITH NS INFUSING AT 100 ML/HR. TELEMETRY IN PLACE FOR NOW...ENCOURAGING PT TO KEEP GOWN AND TELEMETRY ON. WILL MONITOR FOR NEEDS.
[2020-04-17 20:00] VITALS: BP 167/76
--- NOTE | 2020-04-17 20:45 | NUR ---
HS MEDICATIONS GIVEN. PT REQUIRED MUCH ENCOURAGEMENT TO TAKE PO MEDICATION.
--- NOTE | 2020-04-17 22:36 | NUR ---
PT REFUSING TO KEEP GOWN OR TELEMETRY ON. MEMBER OF PARLIAMENT TECH CONTINUOUSLY CALLING THAT PT IS OFF MONITOR. GAVE RASHID ROMANO PER PRN ORDER. WILL MONITOR FOR EFFECTIVENESS.
--- NOTE | 2020-04-18 00:28 | NUR ---
PT PULLED OUT IV. ATTEMTING TO HAVE RE-SITED X3 NURSES SO FAR.
--- NOTE | 2020-04-18 00:45 | NUR ---
IV RE-SITED TO LEFT AC USING 22 GUAGE CATHETER BY LETY TORIBIO. IV FLUIDS RE-STARTED.
[2020-04-18 04:00] VITALS: BP 175/86
[2020-04-18 06:25] LABS: ALBUMIN 2.3 g/dL (3.4-5.0); ANION GAP 17.2 mmol/L (8-16); BILIRUBIN - TOTAL 0.28 mg/dL (0.2-1.3); CALCIUM 7.4 mg/dL (8.5-10.1); CARBON DIOXIDE 19.5 mmol/L (21.0-32.0); CREATININE - SERUM 4.4 mg/dL (0.6-1.3); MAGNESIUM - SERUM 1.6 mg/dL (1.8-2.4); POTASSIUM - SERUM 3.7 mmol/L (3.5-5.1); PROTEIN - SERUM 5.1 g/dL (6.4-8.2)
[2020-04-18 06:42] LABS: BASOPHILS 0.6 % (0-2); EOSINOPHILS 0.6 % (0-7); HEMATOCRIT 22.7 % (36.0-48.0); IMMATURE GRANULOCYTES 0.8 % (0-5); LYMPHOCYTES 23.2 % (15-50); MCH 27.2 pg (26.0-34.0); MCHC 32.2 g/dL (31.0-37.0); MCV 84.7 fL (80.0-100.0); MEAN PLATELET VOLUME 9.6 fL (7.4-10.4); MONOCYTES 9.7 % (2-11); NEUTROPHIL ABS# 3.37 10x3/uL (1.56-6.13); NEUTROPHILS 65.1 % (40-80); PLATELET COUNT 288 10x3/uL (130-400); RBC 2.68 10x6/uL (4.00-5.40); RDW 13.3 % (11.5-14.5)
[2020-04-18 06:43] LABS: WBC 5.2 10x3/uL (4.8-10.8)
[2020-04-18 06:44] LABS: HEMOGLOBIN 7.3 g/dL (12-16)
--- NOTE | 2020-04-18 09:48 | NUR ---
STUDENTS WITH PATIENT ASSISTING WITH FEEDING. PATIENT EATING SMALL BITES WITH ENCOURAGEMENT. CONTINUE WITH PLAN OF CARE
[2020-04-18 10:39] VITALS: BP 164/68
--- NOTE | 2020-04-18 13:17 | PN ---
PATIENT:KRISTI WRIGHT MEDICAL RECORD: [id number] LOCATION:D.MS [address] ADMISSION DATE: 04/07/20 PROGRESS NOTE DATE OF SERVICE: 04/17/2020 SUBJECTIVE: The patient's case was discussed with staff. OBJECTIVE: The patient is chronically mentally ill and is hospitalized secondary to renal failure. She has been refusing scheduled medicines and a blood transfusion. When I asked her about this, she becomes a little irritated and insists that she has not refused anything. There is no point in arguing with her, but she is not taking everything that is well documented by multiple staff members. She says she will take any medication that I think is appropriate and so based on this, I am going to treat her or at least offer to treat her with both scheduled and p.r.n. medications. ASSESSMENT: Schizophrenia. PLAN: Managing this patient is simply going to be problematic because of her mental illness. At this point, she is her own guardian and so these decisions not to accept treatment are not being made on any kind of a rational basis that can be addressed. If she will take the antipsychotic and mood stabilizing medications I prescribed, this may improve her insight and compliance and we are obviously obligated to do anything that would be necessary to protect her or others from any direct threat, but at this point, she is not threatening anyone, she is just simply not cooperating for reasons that do not make sense. It would be very important to get the scheduled psychiatric medications into her and hopefully this will improve her level of compliance. TRANSINT:[id number] Voice Confirmation ID: [id number] DOCUMENT ID: [id number] ALEXA VILCHIS MD at 1317 CC: [id number] DICTATION DATE: 04/17/20 1600 MINERALOGY PROFESSOR: 04/17/20 1727 ADM IN [facility] [address] [place] [address]
[2020-04-18 14:14] VITALS: BP 162/60
--- NOTE | 2020-04-18 14:54 | NUR ---
I have reviewed this patient and I concur with the Shift Assessment completed by the Licensed Practical Nurse today this shift.
--- NOTE | 2020-04-18 15:10 | NUR ---
OT NOTE: VERY LIMITED PARTICIPATION TODAY. PT WITH BLANKET OVER HER HEAD. WOULD NOT VERBALLY RESPOND; REFUSED TO ATTEMPT TO EAT..WILL TRY AGAIN TOMORROW. SUNNY WRIGHT, OTR/L
[2020-04-18 18:28] VITALS: BP 159/69
--- NOTE | 2020-04-18 19:40 | NUR ---
PT LYING IN BED SLEEPING WITHOUT DISTRESS, CL IN REACH
[2020-04-18 20:00] VITALS: BP 177/69
[2020-04-19] VITALS: BP 166/53
--- NOTE | 2020-04-19 | NUR ---
PT GIVEN BED BATH AT THIS TIME. LINENS CHANGED. GAVE TYLENOL SUPP FOR FEVER. DENIES OTHER NEEDS
[2020-04-19 04:00] VITALS: BP 177/66
[2020-04-19 06:12] LABS: ANION GAP 13.5 mmol/L (8-16); BILIRUBIN - TOTAL 0.24 mg/dL (0.2-1.3); CALCIUM 7.8 mg/dL (8.5-10.1); CREATININE - SERUM 4.3 mg/dL (0.6-1.3); POTASSIUM - SERUM 3.5 mmol/L (3.5-5.1); PROTEIN - SERUM 5.5 g/dL (6.4-8.2)
[2020-04-19 06:14] LABS: MAGNESIUM - SERUM 2.3 mg/dL (1.8-2.4)
[2020-04-19 06:56] LABS: BASOPHILS 0.4 % (0-2); EOSINOPHILS 0.5 % (0-7); HEMATOCRIT 21.7 % (36.0-48.0); IMMATURE GRANULOCYTES 0.4 % (0-5); LYMPHOCYTE ABS# 1.26 10x3/uL (1.18-3.74); LYMPHOCYTES 22.2 % (15-50); MCH 27.5 pg (26.0-34.0); MCHC 32.3 g/dL (31.0-37.0); MCV 85.1 fL (80.0-100.0); MEAN PLATELET VOLUME 9.4 fL (7.4-10.4); MONOCYTES 10.7 % (2-11); NEUTROPHIL ABS# 3.74 10x3/uL (1.56-6.13); NEUTROPHILS 65.8 % (40-80); RBC 2.55 10x6/uL (4.00-5.40); RDW 13.6 % (11.5-14.5); WBC 5.7 10x3/uL (4.8-10.8)
[2020-04-19 07:20] LABS: PLATELET COUNT 349 10x3/uL (130-400)
[2020-04-19 08:39] VITALS: BP 203/82
--- NOTE | 2020-04-19 08:55 | NUR ---
CALL FROM GREEN CHAIN WORKER,HEART RATE DROPPED TO 30. PATIENT NON RESPONSIVE AND HAS SMALL AMOUNTS OF LIQUID COMING FROM MOUTH. RAPID RESPONSE CALLED,SEE SHEET. ASSESSMENT PER FLOW SHEET.MONITOR. DOOR OPEN
[2020-04-19 10:29] LABS: CKMB 1.2 U/L (0.0-3.6); CREATINE KINASE 88 UL (21-215)
[2020-04-19 10:30] LABS: TROPONIN-I 0.108 ng/mL (0.000-0.060)
[2020-04-19 12:08] VITALS: BP 138/72
[2020-04-19 13:11] LABS: BILIRUBIN NEGATIVE (NEGATIVE); KETONE SMALL mg/dL (NEGATIVE); NITRITE NEGATIVE (NEGATIVE); UROBILINOGEN NORMAL mg/dL (< 2)
[2020-04-19 13:13] LABS: BACTERIA FEW HPF (NONE SEEN); SQUAMOUS EPITHELIAL 0-5 HPF (0-4); WHITE CELLS - URINE 0-5 HPF (0-4)
[2020-04-19 13:14] LABS: AMORPHOUS SEDIMENT <1+ LPF (NONE SEEN); GRANULAR CAST 0-5 LPF (NONE SEEN)
--- NOTE | 2020-04-19 15:21 | NUR ---
PATIENT HAD RAPID RESPONSE CALLED IN THE AM. ON HOLD IN THE PM PER NSG.
[2020-04-19 16:04] LABS: CKMB 1.7 U/L (0.0-3.6); CREATINE KINASE 91 UL (21-215)
[2020-04-19 16:07] LABS: TROPONIN-I 0.086 ng/mL (0.000-0.060)
--- NOTE | 2020-04-19 16:13 | NUR ---
OT NOTE: PT IS ON HOLD.
--- NOTE | 2020-04-19 16:13 | NUR ---
OT NOTE: TMT WITHHELD SECONDARY TO RAPID RESPONSE CALLED ON PT THIS AM. SUNNY WRIGHT, OTR/L
--- NOTE | 2020-04-19 19:45 | NUR ---
RECEIVED BEDSIDE REPORT. PT LAYING IN BED ORIENTATED TO SELF. PIV TO LEFT HAND PATENT AND INFUSING, NO REDNESS OR SWELLING. COOPER IN PLACE, DRAINING TO GRAVITY, STATLOCK IN PLACE. BED LOW, ALARM ON, CL IN REACH.
[2020-04-19 20:00] VITALS: BP 193/82
[2020-04-19 21:48] LABS: CKMB 1.7 U/L (0.0-3.6); CREATINE KINASE 81 UL (21-215)
[2020-04-19 21:51] LABS: TROPONIN-I 0.092 ng/mL (0.000-0.060)
[2020-04-20] VITALS: BP 168/68
[2020-04-20 02:57] LABS: BASOPHILS 0.3 % (0-2); EOSINOPHILS 0.7 % (0-7); IMMATURE GRANULOCYTES 0.7 % (0-5); LYMPHOCYTE ABS# 1.23 10x3/uL (1.18-3.74); LYMPHOCYTES 17.3 % (15-50); MCH 28.5 pg (26.0-34.0); MCHC 33.8 g/dL (31.0-37.0); MCV 84.4 fL (80.0-100.0); MEAN PLATELET VOLUME 8.7 fL (7.4-10.4); MONOCYTES 9.3 % (2-11); NEUTROPHIL ABS# 5.11 10x3/uL (1.56-6.13); NEUTROPHILS 71.7 % (40-80); PLATELET COUNT 315 10x3/uL (130-400); RDW 13.7 % (11.5-14.5); WBC 7.1 10x3/uL (4.8-10.8)
[2020-04-20 02:59] LABS: HEMATOCRIT 31.4 % (36.0-48.0); HEMOGLOBIN 10.6 g/dL (12-16); RBC 3.72 10x6/uL (4.00-5.40)
[2020-04-20 03:04] LABS: ALBUMIN 2.1 g/dL (3.4-5.0); ANION GAP 16.1 mmol/L (8-16); BILIRUBIN - TOTAL 0.36 mg/dL (0.2-1.3); CALCIUM 7.8 mg/dL (8.5-10.1); CARBON DIOXIDE 18.1 mmol/L (21.0-32.0); CREATININE - SERUM 4.1 mg/dL (0.6-1.3); PROTEIN - SERUM 5.9 g/dL (6.4-8.2); VANCOMYCIN - RANDOM 13.3 ug/mL (10.0-20.0)
[2020-04-20 03:06] LABS: POTASSIUM - SERUM 4.2 mmol/L (3.5-5.1)
[2020-04-20 04:00] VITALS: BP 166/69
[2020-04-20 08:42] VITALS: BP 157/69
--- NOTE | 2020-04-20 09:57 | NUR ---
SPOKE TO MIKEL WITH CARDIOLOGY, RELAYED EVENTS OF PATIENT RAPID CALLED YESTERDAY MORNING, ELEVATED TROPONIN AND PATIENT RECEIVING 2 UNITS OF BLOOD. PER TELEMETRY PATIENT HR DROPPED INTO 30'S AND WENT INTO VTACH. PER MIKEL THEY WILL ROUND TODAY
[2020-04-20 12:24] VITALS: BP 149/59
--- NOTE | 2020-04-20 13:21 | NUR ---
OT NOTE: PT DOING MUCH BETTER TODAY. SHE WAS ALERT AND VERBALIZING TODAY. SHE REMAINS VERY CONFUSED, AND CONTINUES TO ASK STAFF TO TAKE HER "FOOD STAMPS CARD" AND GET HER SOME FOOT. PT NOT LIKING THE PUREED FOOD.. WILL DISCUSS WITH S.T FOR POSSIBLE DIET CHANGES. PT AGREEABLE TO PARTICIPATE IN ALL ACTIVITIES REQUESTED. SHE WAS ABLE TO FEED SELF A FEW BITES, BUT DID NOT LIKE IT. SHE WAS ABLE TO WASH HER FACE AND HANDS WITH CLOTH REQUIRING FREQ CUES TO STAY ON TASK. BED MOB INCLUDING ROLLING SIDE TO SIDE WITH MIN ASSIST; SUPINE TO SIT AND SIT TO SUPINE WITH MIN/MOD ASSIST X 2 TRIALS. STATIC SITTING ON EOB WITH CGA. ATTEMPTED SIT TO STAND WITH MAX ASSIST X 2..TOLERATED STANDING APPROX 5-10 SECONDS. SUNNY WRIGHT, OTR/L [phone]
--- NOTE | 2020-04-20 13:29 | MORECARE ---
CASE MANAGEMENT DISCHARGE SUMMARY PATIENT: KRISTI WRIGHT UNIT: [id number] ADM DATE: 04/07/20 AGE: 64 : 59 SEX: F ROOM/BED: D.2219 AUTHOR: REGINO ALEXANDER PHYSICIAN: REFERRING PHYSICIAN: SPIKE DANG MD DATE OF SERVICE: 04/20/20 Discharge Plan Patient Name: KRISTI WRIGHT Facility: [facility]:[place] : 1955 Planned Disposition: Shelter Facility Anticipated Discharge Date: Discharge Date: Expected LOS: Initial Reviewer: [email or web address] Initial Review Date: 04/07/2020 Generated: 04/20/20 2:28 pm Comments DCP- Discharge Planning Updated by [email or web address]: Amanda Foss on 04/20/20 12:[address] CM SPOKE WITH PATIENT'S DAUGHTER ABOUT PLAN OF CARE. I UPDATED HER ON WHAT WAS GOING ON AND CHIP STATES THAT HER PLAN STILL WILL BE TO GO TO [facility] DCP- Discharge Planning Updated by [email or web address]: Cheryl Rosado on 04/11/20 6:[address] Patient Name: KRISTI WRIGHT Admission Status: ER Accout number: [id number] Admission Date: 04-07-2020 : 1955 Admission Diagnosis:ACUTE KIDNEY FAILURE, UNSPECIFIED Attending: SPIKE CORBETT Current LOS: 4 Anticipated DC Date: Planned Disposition: Shelter Facility Primary Insurance: MEDICARE PART A ONLY Discharge Planning Comments: CM called and spoke with patient's daughter about discharge planning. CM explained that the physicians have attempted to call her, but were not able to leave her a voice message because her voice mail box is full. Daughter states that patient was just recently admitted to [facility] for rehab. States patient just recently became confused. Daughter states she is a Psychiatrist and knows the difference between Dementia and Delirium and the course of treatment for both conditions. States that if her mother has Dementia it is in the early stages. States she believes the patient is suffering from Delirium. States that patient's current state of confusion is not her baseline. States patient was still able to give people the daughter's phone number from memory just two weeks ago. Daughter went on to explain that she thinks the patient is over medicated. States that the patient was not taking her mediations. That she was hiding them in her bed. And that because she was not responding to the current dosage of her medications that the hospital increased the dosage. States the rehab discovered the patient was hiding her medications so they started crushing the patient's medications and put them in her food. States that because the patient hadn't taken her mediations in so long and that the dosage had been increased over the course of treatment at the hospital this may have caused the patient to be over-medicated. States that is also why the patient started refusing to eat at the rehab, because they were putting her medication in her food. Daughter would like to speak with patient's renal doctor and with Dr. Lima tomorrow if at all possible to discuss her care. States she has an appointment from 11-11:45 and another at 15:30. But any time other than that will be acceptable. Daughter, Dr. Chip Alfred may be reached at [phone]. Daughter has also informed CM that when patient is medically stable and ready for discharge from the hospital that she wants patient moved to a SNF closer to [place] so she won't be as far away from where daughter lives. SUPRIYA completed for "Any SNF close to [place]". Copy on chart. CM will continue to follow and assist as needed with discharge planning / needs. Blanket Cutter Hand: Cheryl Delarosa DP export: 04/11/20 6:04 p Patient Name: KRISTI WRIGHT Page [id number] at 1329 All edits/amendments must be made on the electronic document DICTATION DATE: 04/20/20 1328 [employer] COORDINATOR: KASIE 04/20/201327 RPT#: [id number] DC DATE: STATUS: ADM IN [facility] [address] [place] [address] END OF REPORT
--- NOTE | 2020-04-20 14:05 | NUR ---
Nutrition follow-up: Pt ate a little bit with OT today; however, pt is not a fan of pureed foods Diet: Consistent CHO puree with thin liquids Labs reviewed Wt: 137# Pt was sleeping at time of RD visit RDN will order Nepro with meals Follow-up: 04/24/20
[2020-04-20 16:10] VITALS: Ht 165.1 cm; Wt 62.5 kg
[2020-04-20 16:40] VITALS: BP 171/85
--- NOTE | 2020-04-20 19:45 | NUR ---
RECEIVED BEDSIDE REPORT. PT LAYING IN BED ORIENTATED TO SELF. PIV TO LEFT AC PATENT AND INFUSING, NO REDNESS OR SWELLING. REDNESS TO BUTTOCKS. COOPER IN PLACE DRAINING TO GRAVITY, STATLOCK IN PLACE. TELEMETRY IN PLACE, 85 SR. GENERALIZED WEAKNESS, BEDFAST, TOTAL ASSIST. BED LOW, ALARM ON, CL IN REACH.
[2020-04-20 20:00] VITALS: BP 176/78
[2020-04-21] VITALS: BP 192/73
[2020-04-21 04:00] VITALS: BP 153/70
[2020-04-21 07:31] LABS: ANION GAP 20.2 mmol/L (8-16); BILIRUBIN - TOTAL 0.33 mg/dL (0.2-1.3); CALCIUM 7.9 mg/dL (8.5-10.1); CREATININE - SERUM 4.2 mg/dL (0.6-1.3); MAGNESIUM - SERUM 2.1 mg/dL (1.8-2.4); POTASSIUM - SERUM 4.2 mmol/L (3.5-5.1); PROTEIN - SERUM 5.2 g/dL (6.4-8.2); VANCOMYCIN - RANDOM 26.1 ug/mL (10.0-20.0)
[2020-04-21 07:34] LABS: BASOPHILS 0.6 % (0-2); EOSINOPHILS 2.7 % (0-7); HEMATOCRIT 31.2 % (36.0-48.0); HEMOGLOBIN 10.6 g/dL (12-16); LYMPHOCYTE ABS# 1.11 10x3/uL (1.18-3.74); LYMPHOCYTES 15.7 % (15-50); MCH 28.6 pg (26.0-34.0); MCV 84.3 fL (80.0-100.0); MEAN PLATELET VOLUME 9.2 fL (7.4-10.4); MONOCYTES 11.7 % (2-11); NEUTROPHIL ABS# 4.85 10x3/uL (1.56-6.13); NEUTROPHILS 68.3 % (40-80); PLATELET COUNT 364 10x3/uL (130-400); RDW 14.4 % (11.5-14.5); WBC 7.1 10x3/uL (4.8-10.8)
--- NOTE | 2020-04-21 08:01 | NUR ---
PT EASILY AWAKENED. NO NEEDS AT THIS TIME. WCTM
[2020-04-21 08:28] VITALS: BP 155/86; BP 176/84
--- NOTE | 2020-04-21 12:12 | NUR ---
OT NOTE: PT ALERT BUT REMAINS VERY CONFUSED. PT ALSO HALLUCINATING.. STATES THAT SHE HAS A CAR ON TOP OF HER AND ASKING IF I CAN GET IT OFF. PERFORMED BED MOB INCLUDING ROLLING SIDE TO SIDE.. PT DID NOT WANT TO SIT UP.. REFUSED TO ATTEMPT DRINK AND FEEDING. REFUSED GROOMING TASKS. SUNNY WRIGHT, OTR/L [phone]
[2020-04-21 12:17] VITALS: BP 149/63
[2020-04-21 17:35] VITALS: BP 163/68
--- NOTE | 2020-04-21 19:08 | NUR ---
RECEIVED REPORT, ASSUMED CARE, BREATHING EVEN UNLABORED, CALL LIGHT IN REACH, BED LOWEST POSITION, DENIES NEEDS, NO S/S OF DISTRESS NOTED, ENCOURAGED PT TO NOTIFY STAFF OF ANY NEEDS, COOPER TO GRAVITY
[2020-04-21 21:08] VITALS: BP 174/80
[2020-04-22 01:26] VITALS: BP 111/70
--- NOTE | 2020-04-22 03:42 | NUR ---
I have reviewed this patient and I concur with the Shift Assessment completed by the Licensed Practical Nurse today this shift.
[2020-04-22 05:43] LABS: BASOPHILS 0.9 % (0-2); EOSINOPHILS 2.9 % (0-7); HEMOGLOBIN 9.6 g/dL (12-16); IMMATURE GRANULOCYTES 1.7 % (0-5); MCHC 33.1 g/dL (31.0-37.0); MCV 84.5 fL (80.0-100.0); MEAN PLATELET VOLUME 9.4 fL (7.4-10.4); MONOCYTES 15.2 % (2-11); NEUTROPHIL ABS# 4.09 10x3/uL (1.56-6.13); NEUTROPHILS 61.3 % (40-80); PLATELET COUNT 377 10x3/uL (130-400); RBC 3.43 10x6/uL (4.00-5.40); RDW 14.9 % (11.5-14.5); WBC 6.7 10x3/uL (4.8-10.8)
[2020-04-22 06:20] LABS: ALBUMIN 1.8 g/dL (3.4-5.0); ANION GAP 18.8 mmol/L (8-16); BILIRUBIN - TOTAL 0.24 mg/dL (0.2-1.3); CREATININE - SERUM 4.3 mg/dL (0.6-1.3); POTASSIUM - SERUM 3.8 mmol/L (3.5-5.1); PROTEIN - SERUM 5.4 g/dL (6.4-8.2); VANCOMYCIN - RANDOM 24.1 ug/mL (10.0-20.0)
[2020-04-22 06:26] VITALS: BP 156/67
--- NOTE | 2020-04-22 08:14 | NUR ---
PT LAYING IN BED CURLED UP ON HER LEFT SIDE. STATES SHE IS COLD. I COVERED HER WITH THE BLANKET THAT APPEARED IT WAS THROWN TO THE SIDE. CL IN REACH. WCTM
--- NOTE | 2020-04-22 08:34 | NUR ---
PT REFUSED VITAL SIGNS AT THIS TIME. WILL CONTINUE TO MONITOR.
[2020-04-22 09:23] VITALS: BP 175/70
--- NOTE | 2020-04-22 11:45 | NUR ---
PT LAYING ON RIGHT SIDE. NO NEEDS AT THIS TIME. CL IN REACH. WCTM
[2020-04-22 13:25] VITALS: BP 140/74
--- NOTE | 2020-04-22 14:25 | NUR ---
PATIENT IS MAX TO SOB AND WHILE SITTING DOESNT HELP AT ALL BUT ONCE ON THE SOB WILL KICK HER FEET OUT A TINY BIT
[2020-04-22 17:40] VITALS: BP 138/76
--- NOTE | 2020-04-22 18:44 | NUR ---
KENNETH TO STAY IN PLACE PER NEPHROLOGY AND DR YOUNG. ALERTED DR DUNBAR AND [facility]. NOTIFIED DR YOUNG WELL. WILL WAIT ON ORDERS. TM
--- NOTE | 2020-04-22 19:57 | NUR ---
RECEIVED REPORT, ASSUMED CARE, BREATHING EVEN UNLABORED, CALL LIGHT IN REACH, BED LOWEST POSITION, DENIES NEEDS, NO S/S OF DISTRESS NOTED, ENCOURAGED PT TO NOTIFY STAFF OF ANY NEEDS, COOPER TO GRAVITY, BED ALARM ON
--- NOTE | 2020-04-22 20:20 | NUR ---
REPOSITIONED PT, COOPER WAS CUT AND CLAMPED, AFTER UNCLAMPING COOPER, COOPER SLIDE OUT, PAGED PHYSICIAN FOR REPLACEMENT OR TO KEEP OUT, AWAITING CALL BACK
[2020-04-22 20:43] VITALS: BP 172/65
--- NOTE | 2020-04-23 03:00 | NUR ---
I have reviewed this patient and I concur with the Shift Assessment completed by the Licensed Practical Nurse today this shift.
[2020-04-23 06:59] LABS: BASOPHILS 0.9 % (0-2); EOSINOPHILS 4.1 % (0-7); HEMATOCRIT 29.5 % (36.0-48.0); HEMOGLOBIN 9.7 g/dL (12-16); IMMATURE GRANULOCYTES 1.9 % (0-5); LYMPHOCYTE ABS# 1.27 10x3/uL (1.18-3.74); LYMPHOCYTES 17.2 % (15-50); MCH 27.8 pg (26.0-34.0); MCHC 32.9 g/dL (31.0-37.0); MCV 84.5 fL (80.0-100.0); MEAN PLATELET VOLUME 8.9 fL (7.4-10.4); MONOCYTES 14.6 % (2-11); NEUTROPHIL ABS# 4.53 10x3/uL (1.56-6.13); NEUTROPHILS 61.3 % (40-80); PLATELET COUNT 427 10x3/uL (130-400); RBC 3.49 10x6/uL (4.00-5.40); RDW 15.1 % (11.5-14.5); WBC 7.4 10x3/uL (4.8-10.8)
[2020-04-23 07:06] LABS: ALBUMIN 1.8 g/dL (3.4-5.0); BILIRUBIN - TOTAL 0.22 mg/dL (0.2-1.3); CALCIUM 8.4 mg/dL (8.5-10.1); CARBON DIOXIDE 19.8 mmol/L (21.0-32.0); CREATININE - SERUM 4.6 mg/dL (0.6-1.3); MAGNESIUM - SERUM 2.2 mg/dL (1.8-2.4); POTASSIUM - SERUM 3.7 mmol/L (3.5-5.1); PROTEIN - SERUM 5.6 g/dL (6.4-8.2)
[2020-04-23 07:09] LABS: ANION GAP 15.9 mmol/L (8-16); VANCOMYCIN - RANDOM 22.6 ug/mL (10.0-20.0)
[2020-04-23 08:24] VITALS: BP 100/61
[2020-04-23 11:56] VITALS: BP 135/69
[2020-04-23 16:49] VITALS: BP 142/65
--- NOTE | 2020-04-23 18:47 | NUR ---
SPOKE WITH VIV CAST, WITH NEPROLOGY ABOUT PT URINE OUTPUT AT 0 FOR THE DAY. URINE OUTPUT WITH COOPER WAS 275 ML. PLACED WITH STERILE TECHNIQUE. WAS RATHER UPSET WE PLACED ANOTHER COOPER. STATES SHE WANTS TO GO HOME. CL IN REACH. POSSE ALARM ON.
--- NOTE | 2020-04-23 19:31 | NUR ---
PATIENT RESTING IN BED WITH EYES CLOSED AND NO S/S OF DISTRESS. BED IN LOWEST POSITION AND CALL LIGHT IN REACH.
--- NOTE | 2020-04-23 21:48 | NUR ---
ADMINISTERED MEDS PER ORDERS. PATIENT MOISES WELL. ENCOURAGED TO CALL WITH NEEDS.
[2020-04-23 23:02] VITALS: BP 164/75
[2020-04-24 05:07] VITALS: BP 113/89
--- NOTE | 2020-04-24 07:40 | NUR ---
PATIENT LAYING IN BED EASILY AWAKENED, PLEASANT THIS MORNING, PATIENT HAD ANOTHER COOPER PLACED THIS MORNING, NO NEEDS VOICED, STATED SHE WILL TRY BREAKFAST WITH HER MEDICATIONS TODAY. CONTINUE WITH PLAN OF CARE
[2020-04-24 08:00] LABS: ALBUMIN 1.8 g/dL (3.4-5.0); ANION GAP 13.6 mmol/L (8-16); BILIRUBIN - TOTAL 0.3 mg/dL (0.2-1.3); CALCIUM 7.8 mg/dL (8.5-10.1); CARBON DIOXIDE 22.2 mmol/L (21.0-32.0); CREATININE - SERUM 4.7 mg/dL (0.6-1.3); POTASSIUM - SERUM 3.8 mmol/L (3.5-5.1); VANCOMYCIN - RANDOM 17.5 ug/mL (10.0-20.0)
[2020-04-24 08:05] LABS: BASOPHILS 0.5 % (0-2); EOSINOPHILS 2.2 % (0-7); HEMATOCRIT 28.3 % (36.0-48.0); HEMOGLOBIN 9.3 g/dL (12-16); LYMPHOCYTE ABS# 1.56 10x3/uL (1.18-3.74); LYMPHOCYTES 15.1 % (15-50); MCH 27.8 pg (26.0-34.0); MCHC 32.9 g/dL (31.0-37.0); MCV 84.7 fL (80.0-100.0); MEAN PLATELET VOLUME 8.8 fL (7.4-10.4); MONOCYTES 8.6 % (2-11); NEUTROPHIL ABS# 7.47 10x3/uL (1.56-6.13); NEUTROPHILS 72.6 % (40-80); PLATELET COUNT 442 10x3/uL (130-400); RBC 3.34 10x6/uL (4.00-5.40); RDW 15.3 % (11.5-14.5); WBC 10.3 10x3/uL (4.8-10.8)
[2020-04-24 08:35] VITALS: BP 160/71
[2020-04-24 10:51] LABS: BILIRUBIN NEGATIVE (NEGATIVE); KETONE NEGATIVE (NEGATIVE); NITRITE NEGATIVE (NEGATIVE); UROBILINOGEN NORMAL mg/dL (< 2)
[2020-04-24 10:53] LABS: BACTERIA FEW HPF (NONE SEEN); SQUAMOUS EPITHELIAL 0-5 HPF (0-4); WHITE CELLS - URINE 0-5 HPF (0-4)
[2020-04-24 10:54] LABS: AMORPHOUS SEDIMENT <1+ LPF (NONE SEEN); GRANULAR CAST 0-5 LPF (NONE SEEN)
[2020-04-24 11:27] VITALS: BP 126/66
--- NOTE | 2020-04-24 12:39 | NUR ---
ATTEMPTED IV SITE X1, UNABLE TO ADVANCE IV. PATIENT REFUSED ANOTHER STICK
--- NOTE | 2020-04-24 13:33 | NUR ---
Nutrition follow-up: Diet: consistent CHO puree with thin liquids PO intake continues to be poor; pt does not like puree consistency Labs reviewed Wt: 137# +BM Pt with poor po intake at most meals Recommend: - Appetite stimulant trial to see if po intake will improve - Suggest NGT vs PEG tube placement and TF started due to continued poor po intake Follow-up: 04/27/20
--- NOTE | 2020-04-24 15:30 | NUR ---
OT NOTE: PHYSICIAN NOTE REQUESTS AGGRESIVE THERAPY. PT ALERT..PT AGREEABLE TO ATTEMPT EOB SITTING..BED MOB INCLUDING ROLLING FROM SIDE TO SIDE WITH MOD ASSIST; SUPINE TO SIT WITH MAX ASSIST. EOB SITTING WITH CGA. ABLE TO WASH FACE WITH WASH CLOTH. RESISTANT TO ATTEMPT FURTHER GROOMING TASKS.. PT WANTING TO LIE BACK DOWN. ASSISTED BACK TO SUPINE .. PERFORMED ACTIVE AND ACTIVE/ASSISTIVE UE ROM EXS. REQUIRED ASSIST X 2 TO REPOSITION IN BED. SUNNY WRIGHT, OTR/L [phone]
--- NOTE | 2020-04-24 16:43 | NUR ---
OT NOTE: PT REQUIRED MAX A X2 FOR SUPINE TO SIT. PT COMPLETED EOB SITTING WITH MIN-MOD A. PT COMPLETED ORAL HYGIENE WITH MAX A USING TOOTHETTE. PT COMPLETED HAND HYGIENE WITH MOD A AND EXTENSIVE CUES. PT IS CONFUSED AND REQUIRED EXTENSIVE CUES AND EXTRA TIME. [id number] THANK YOU,LEELA LUCAS
[2020-04-24 17:19] VITALS: BP 136/62
--- NOTE | 2020-04-24 20:00 | NUR ---
PT SITTING UP IN BED WITHOUT DISTRESS, ORIENTED TO SELF. SON AT BEDSIDE. BOTH DENY NEEDS AT THIS TIME. CL IN REACH, RYLAN ON
[2020-04-25 04:44] VITALS: BP 153/82
[2020-04-25 05:16] LABS: EOSINOPHILS 4.8 % (0-7); HEMATOCRIT 30.1 % (36.0-48.0); IMMATURE GRANULOCYTES 2.2 % (0-5); LYMPHOCYTE ABS# 2.09 10x3/uL (1.18-3.74); LYMPHOCYTES 21.7 % (15-50); MCH 28.1 pg (26.0-34.0); MCHC 33.2 g/dL (31.0-37.0); MCV 84.6 fL (80.0-100.0); MEAN PLATELET VOLUME 9.1 fL (7.4-10.4); MONOCYTES 11.6 % (2-11); NEUTROPHIL ABS# 5.66 10x3/uL (1.56-6.13); NEUTROPHILS 58.7 % (40-80); PLATELET COUNT 500 10x3/uL (130-400); RBC 3.56 10x6/uL (4.00-5.40); RDW 15.5 % (11.5-14.5); WBC 9.6 10x3/uL (4.8-10.8)
[2020-04-25 05:25] LABS: ALBUMIN 1.8 g/dL (3.4-5.0); ANION GAP 16.1 mmol/L (8-16); BILIRUBIN - TOTAL 0.3 mg/dL (0.2-1.3); CALCIUM 8.4 mg/dL (8.5-10.1); CARBON DIOXIDE 20.8 mmol/L (21.0-32.0); CREATININE - SERUM 4.6 mg/dL (0.6-1.3); POTASSIUM - SERUM 3.9 mmol/L (3.5-5.1); PROTEIN - SERUM 5.1 g/dL (6.4-8.2); VANCOMYCIN - RANDOM 28.4 ug/mL (10.0-20.0)
[2020-04-25 09:07] VITALS: BP 171/67
--- NOTE | 2020-04-25 11:28 | NUR ---
PATIENT IS SLEEPING WITH COVERS OVER HER HEAD WHEN ENCOURAGING PATIENT TO USE I/S SHE STATES NO I DON'T WANT TO AND SWATTED AT MY HAND, CONTINUE WITH PLAN OF CARE
[2020-04-25 12:59] VITALS: BP 150/64
--- NOTE | 2020-04-25 13:29 | MORECARE ---
CASE MANAGEMENT DISCHARGE SUMMARY PATIENT: KRISTI WRIGHT UNIT: [id number] ADM DATE: 04/07/20 AGE: 64 : 59 SEX: F ROOM/BED: D.2219 AUTHOR: CATHERINE,DOC PHYSICIAN: REFERRING PHYSICIAN: SPIKE DANG MD DATE OF SERVICE: 04/25/20 Discharge Plan Patient Name: KRISTI WRIGHT Facility: [facility]:[place] : 1955 Planned Disposition: Snf Facility Anticipated Discharge Date: Discharge Date: Expected LOS: Initial Reviewer: [email or web address] Initial Review Date: 04/07/2020 Generated: 04/25/20 2:29 pm Comments DCP- Discharge Planning Updated by [email or web address]: Amanda Foss on 04/25/20 12:[address] Called [facility] in [facility] & spoke with Leida, the admissions ([phone]) about a referral to their facility per daughter's request. She stated that she has not received any referral yet nor had she spoke with her daughter. I will send over the referral and they will take a look. Today the patient is VERY sleepy and not doing anything with therapy. I spoke with Danelle MU about our goal and they will try later today to get her up or tomorrow morning depending how the patient is feeling and doing CM to follow and assist DCP- Discharge Planning Updated by [email or web address]: Amanda Foss on 04/20/20 12:[address] CM SPOKE WITH PATIENT'S DAUGHTER ABOUT PLAN OF CARE. I UPDATED HER ON WHAT WAS GOING ON AND CHIP STATES THAT HER PLAN STILL WILL BE TO GO TO [facility] IN [place] DCP- Discharge Planning Updated by [email or web address]: Cheryl Rosado on 04/11/20 6:[address] Patient Name: KRISTI WRIGHT Admission Status: ER Accout number: [id number] Admission Date: 04-07-2020 : 1955 Admission Diagnosis:ACUTE KIDNEY FAILURE, UNSPECIFIED Attending: SPIKE CORBETT Current LOS: 4 Anticipated DC Date: Planned Disposition: Snf Facility Primary Insurance: MEDICARE PART A ONLY Discharge Planning Comments: CM called and spoke with patient's daughter about discharge planning. CM explained that the physicians have attempted to call her, but were not able to leave her a voice message because her voice mail box is full. Daughter states that patient was just recently admitted to [facility] for rehab. States patient just recently became confused. Daughter states she is a Psychiatrist and knows the difference between Dementia and Delirium and the course of treatment for both conditions. States that if her mother has Dementia it is in the early stages. States she believes the patient is suffering from Delirium. States that patient's current state of confusion is not her baseline. States patient was still able to give people the daughter's phone number from memory just two weeks ago. Daughter went on to explain that she thinks the patient is over medicated. States that the patient was not taking her mediations. That she was hiding them in her bed. And that because she was not responding to the current dosage of her medications that the hospital increased the dosage. States the rehab discovered the patient was hiding her medications so they started crushing the patient's medications and put them in her food. States that because the patient hadn't taken her mediations in so long and that the dosage had been increased over the course of treatment at the hospital this may have caused the patient to be over-medicated. States that is also why the patient started refusing to eat at the rehab, because they were putting her medication in her food. Daughter would like to speak with patient's renal doctor and with Dr. Lima tomorrow if at all possible to discuss her care. States she has an appointment from 11-11:45 and another at 15:30. But any time other than that will be acceptable. Daughter, Dr. Chip Alfred may be reached at [phone]. Daughter has also informed CM that when patient is medically stable and ready for discharge from the hospital that she wants patient moved to a SNF closer to [place] so she won't be as far away from where daughter lives. SUPRIYA completed for "Any SNF close to [place]". Copy on chart. CM will continue to follow and assist as needed with discharge planning / needs. Special Events Fundraiser: Cheryl Delarosa DP export: 04/20/20 12:29 pm Patient Name: KRISTI WRIGHT Page [phone] at 1329 All edits/amendments must be made on the electronic document DICTATION DATE: 04/25/201328 CLAIM ATTORNEY: KASIE 04/25/20 132 RPT#: [id number] DC DATE: STATUS: ADM IN [facility] [address] [place] [address] END OF REPORT
--- NOTE | 2020-04-25 13:32 | NUR ---
PATIENT ONLY WAKING UP TO TAKE MEDICATIONS STATED SHE COLINDRES SNOT WANT TO GET UP, YESTERDAY PATIENT ADAMANT AND WANTED TO GET OUT OF BED STATED SHE WALKS AT HOME WITHOUT HELP AND DOES NOT NEED HELP HERE. TODAY PATIENT WANTS TO SLEEP AND STAY IN BED. WOULD NOT SPEAK TO CASE MANAGEMENT AND WOULD NOT COOPERATE WITH PHYSICAL THERAPY, CONTINUE WITH PLAN OF CARE
--- NOTE | 2020-04-25 13:45 | MORECARE ---
CASE MANAGEMENT DISCHARGE SUMMARY PATIENT: KRISTI WRIGHT UNIT: [id number] ADM DATE: 04/07/20 AGE: 64 : 59 SEX: F ROOM/BED: D.2219 AUTHOR: CATHERINE,DOC PHYSICIAN: REFERRING PHYSICIAN: SPIKE DANG MD DATE OF SERVICE: 04/25/20 Discharge Plan Patient Name: KRISTI WRIGHT Facility: [facility]:[place] : 1955 Planned Disposition: Shelter Facility Anticipated Discharge Date: Discharge Date: Expected LOS: Initial Reviewer: [email or web address] Initial Review Date: 04/07/2020 Generated: 04/25/20 2:45 pm Comments DCP- Discharge Planning Updated by [email or web address]: Amanda Foss on 04/25/20 12:[address] Called [facility] in [facility] & spoke with Leida, the admissions ([phone]) about a referral to their facility per daughter's request. She stated that she has not received any referral yet nor had she spoke with her daughter. I will send over the referral and they will take a look. Today the patient is VERY sleepy and not doing anything with therapy. I spoke with Danelle MU about our goal and they will try later today to get her up or tomorrow morning depending how the patient is feeling and doing CM to follow and assist DCP- Discharge Planning Updated by [email or web address]: Amanda Foss on 04/20/20 12:[address] CM SPOKE WITH PATIENT'S DAUGHTER ABOUT PLAN OF CARE. I UPDATED HER ON WHAT WAS GOING ON AND CHIP STATES THAT HER PLAN STILL WILL BE TO GO TO [facility] IN [place] DCP- Discharge Planning Updated by [email or web address]: Cheryl Rosado on 04/11/20 6:[address] Patient Name: KRISTI WRIGHT Admission Status: ER Accout number: [id number] Admission Date: 04-07-2020 : 1955 Admission Diagnosis:ACUTE KIDNEY FAILURE, UNSPECIFIED Attending: SPIKE CORBETT Current LOS: 4 Anticipated DC Date: Planned Disposition: Shelter Facility Primary Insurance: MEDICARE PART A ONLY Discharge Planning Comments: CM called and spoke with patient's daughter about discharge planning. CM explained that the physicians have attempted to call her, but were not able to leave her a voice message because her voice mail box is full. Daughter states that patient was just recently admitted to [facility] for rehab. States patient just recently became confused. Daughter states she is a Psychiatrist and knows the difference between Dementia and Delirium and the course of treatment for both conditions. States that if her mother has Dementia it is in the early stages. States she believes the patient is suffering from Delirium. States that patient's current state of confusion is not her baseline. States patient was still able to give people the daughter's phone number from memory just two weeks ago. Daughter went on to explain that she thinks the patient is over medicated. States that the patient was not taking her mediations. That she was hiding them in her bed. And that because she was not responding to the current dosage of her medications that the hospital increased the dosage. States the rehab discovered the patient was hiding her medications so they started crushing the patient's medications and put them in her food. States that because the patient hadn't taken her mediations in so long and that the dosage had been increased over the course of treatment at the hospital this may have caused the patient to be over-medicated. States that is also why the patient started refusing to eat at the rehab, because they were putting her medication in her food. Daughter would like to speak with patient's renal doctor and with Dr. Lima tomorrow if at all possible to discuss her care. States she has an appointment from 11-11:45 and another at 15:30. But any time other than that will be acceptable. Daughter, Dr. Chip Alfred may be reached at [phone]. Daughter has also informed CM that when patient is medically stable and ready for discharge from the hospital that she wants patient moved to a SNF closer to [place] so she won't be as far away from where daughter lives. SUPRIYA completed for "Any SNF close to [place]". Copy on chart. CM will continue to follow and assist as needed with discharge planning / needs. Real Estate Consultant: Cheryl Rosado External Providers External Provider: OTHER-OTHER Next Contact Date: Service Request Date: Service Type: Resolution: Reviewer: Comments: Last DP export: 04/25/20 12:29 pm Patient Name: KRISTI WRIGHT Page [phone] at 1345 All edits/amendments must be made on the electronic document DICTATION DATE: 04/25/20 1345 [employer] ATTENDANT: KASIE 04/25/20 1345 RPT#: [id number] DC DATE: STATUS: ADM IN [facility] [address] [place] [address] END OF REPORT
--- NOTE | 2020-04-25 14:55 | NUR ---
OT NOTE: D/W NURSING WHO REPORTS THAT SHE SPOKE WITH PTS SON WHO INFORMED HER THAT PT WAS PREVIOUSLY AMBULATING WITHOUT AD; SHE WAS TAKING CARE OF HER ADLS, AND EXPLAINED THAT SHE WAS NOT LIKE THIS 3D ANIMATOR. NURSING TELLS THERAPIST THAT PT ATTEMPTING TO GET OUT OF BED THROUGHOUT LATE AFTERNOON AND EVENING OF PREVIOUS DAY. INFORMED NURSING THAT WE WOULD GET PT UP OUT OF BED TODAY. PT HAS PREVIOUSLY BEEN RESISTIVE TO PARTICIPATE CONSISTENTLY WITH THERAPY. ALSO SPOKE WITH CM LATER IN AFTERNOON REGARDING DC PLANS. MADE 3 ATTEMPTS THROUGHOUT THE DAY TO AWAKEN PT. COULD NOT GET HER TO WAKE UP.. NURSING STATES THAT SHE HAS ALSO BEEN UNABLE TO GET HER TO WAKE UP ENOUGH TO EAT, ANSWER QUESTIONS, ETC SUNNY WRIGHT,OTR/L
[2020-04-25 17:18] VITALS: BP 173/80
--- NOTE | 2020-04-25 18:25 | NUR ---
PATIENT IS AWAKE AND ALERT AND WANTS TO GET OUT OF BED. EXPLAINED TO PATIENT I DO NOT FEEL SAFE GETTING HER OUT OF BED BY MYSELF SINCE SHE DID NOT GET UP WITH PHYSICAL THERAPY TODAY. PATIENT STATED OK I WILL TRY TOMOROW. CONTINUE WITH PLAN OF CARE
--- NOTE | 2020-04-25 19:22 | NUR ---
PATIENT IS WITHOUT DISTRESS.
[2020-04-25 20:00] VITALS: BP 151/69
--- NOTE | 2020-04-25 20:00 | NUR ---
PT SITTING UP IN BED, STATING SHE WANTS TO GET UP. TOLD PT SHE DID NOT GET UP WITH PT TODAY AND THIS NURSE COULD NOT GET HER UP. PT VERBALIZED UNDERSTANDING AND STATED SHE WOULD GET UP IN AM. DENIES NEEDS AT THIS TIME. RYLAN ON. CL IN REACH
[2020-04-26] VITALS: BP 184/76
--- NOTE | 2020-04-26 03:36 | NUR ---
PT PULLED IV OUT OF RIGHT HAND WITH CATH INTACT, UNABLE TO GET ANOTHER IV ACCESS AT THIS TIME, SECOND NURSE WILL ATTEMPT
--- NOTE | 2020-04-26 03:57 | NUR ---
ICU PLACED 20G IV TO RIGHT WRIST X1 ATTEMPT. APRESOLINE GIVEN FOR HIGH BP
[2020-04-26 04:00] VITALS: BP 203/86
[2020-04-26 07:56] VITALS: BP 170/73
--- NOTE | 2020-04-26 07:56 | NUR ---
PATIENT UP ALL NIGHT PER PM NURSE FIDGETING, PATIENT NIGHTS AND DAYS MAY BE MIXED UP, PATIENT WAS UP AT 5PM WANTING GET OUT OF BED HOPE TO GET PATIENT UP TODAY WITH PHYSICAL THERAPY. CLAMPED COOPER CATHETER FOR BLADDER TRAINING. CONTINUE WITH PLAN OF CARE.
[2020-04-26 09:03] LABS: EOSINOPHILS 5.2 % (0-7); HEMATOCRIT 34.6 % (36.0-48.0); HEMOGLOBIN 11.2 g/dL (12-16); IMMATURE GRANULOCYTES 1.9 % (0-5); LYMPHOCYTE ABS# 1.27 10x3/uL (1.18-3.74); LYMPHOCYTES 14.2 % (15-50); MCH 28.3 pg (26.0-34.0); MCHC 32.4 g/dL (31.0-37.0); MEAN PLATELET VOLUME 8.9 fL (7.4-10.4); MONOCYTES 11.1 % (2-11); NEUTROPHIL ABS# 5.94 10x3/uL (1.56-6.13); NEUTROPHILS 66.6 % (40-80); RBC 3.96 10x6/uL (4.00-5.40); RDW 15.9 % (11.5-14.5); WBC 8.9 10x3/uL (4.8-10.8)
[2020-04-26 09:05] LABS: MCV 87.4 fL (80.0-100.0); PLATELET COUNT 357 10x3/uL (130-400)
[2020-04-26 09:24] LABS: ALBUMIN 1.8 g/dL (3.4-5.0); ANION GAP 15.1 mmol/L (8-16); BILIRUBIN - TOTAL 0.35 mg/dL (0.2-1.3); CREATININE - SERUM 4.5 mg/dL (0.6-1.3); POTASSIUM - SERUM 4.1 mmol/L (3.5-5.1); PROTEIN - SERUM 5.1 g/dL (6.4-8.2); VANCOMYCIN - RANDOM 20.6 ug/mL (10.0-20.0)
[2020-04-26 11:39] VITALS: BP 124/62
--- NOTE | 2020-04-26 12:18 | NUR ---
UNCLAMPED PATIENT COOPER, PATIENT IS ASLEEP, HAVE ODRERS TO DC CATHETER, WILL CONTINUE WITH PLAN OF CARE
--- NOTE | 2020-04-26 13:31 | MORECARE ---
CASE MANAGEMENT DISCHARGE SUMMARY PATIENT: KRISTI WRIGHT UNIT: [id number] ADM DATE: 04/07/20 AGE: 64 : 59 SEX: F ROOM/BED: D.2219 AUTHOR: CATHERINE,DOC PHYSICIAN: REFERRING PHYSICIAN: SPIKE DANG MD DATE OF SERVICE: 04/26/20 Discharge Plan Patient Name: KRISTI WRIGHT Facility: [facility]:[place] : 1955 Planned Disposition: Nursing Home Facility Anticipated Discharge Date: Discharge Date: Expected LOS: Initial Reviewer: [email or web address] Initial Review Date: 04/07/2020 Generated: 04/26/20 2:30 pm Comments DCP- Discharge Planning Updated by [email or web address]: Amanda Foss on 04/26/20 12:[address] I reached out to Leida at [facility] to see the status of the referral. She stated that they have it and are still reviewing it. CM will wait for an answer. DCP- Discharge Planning Updated by [email or web address]: Amanda Foss on 04/25/20 12:[address] Called [facility] in [facility] & spoke with Leida, the admissions ([phone]) about a referral to their facility per daughter's request. She stated that she has not received any referral yet nor had she spoke with her daughter. I will send over the referral and they will take a look. Today the patient is VERY sleepy and not doing anything with therapy. I spoke with Danelle DOBBINS about our goal and they will try later today to get her up or tomorrow morning depending how the patient is feeling and doing CM to follow and assist DCP- Discharge Planning Updated by [email or web address]: Amanda Foss on 04/20/20 12:[address] CM SPOKE WITH PATIENT'S DAUGHTER ABOUT PLAN OF CARE. I UPDATED HER ON WHAT WAS GOING ON AND CHIP STATES THAT HER PLAN STILL WILL BE TO GO TO [facility] IN [place] DCP- Discharge Planning Updated by [email or web address]: Cheryl Rosado on 04/11/20 6:[address] Patient Name: KRISTI WRIGHT Admission Status: ER Accout number: [id number] Admission Date: 04-07-2020 : 1955 Admission Diagnosis:ACUTE KIDNEY FAILURE, UNSPECIFIED Attending: SPIKE CORBETT Current LOS: 4 Anticipated DC Date: Planned Disposition: Nursing Home Facility Primary Insurance: MEDICARE PART A ONLY Discharge Planning Comments: CM called and spoke with patient's daughter about discharge planning. CM explained that the physicians have attempted to call her, but were not able to leave her a voice message because her voice mail box is full. Daughter states that patient was just recently admitted to [facility] for rehab. States patient just recently became confused. Daughter states she is a Psychiatrist and knows the difference between Dementia and Delirium and the course of treatment for both conditions. States that if her mother has Dementia it is in the early stages. States she believes the patient is suffering from Delirium. States that patient's current state of confusion is not her baseline. States patient was still able to give people the daughter's phone number from memory just two weeks ago. Daughter went on to explain that she thinks the patient is over medicated. States that the patient was not taking her mediations. That she was hiding them in her bed. And that because she was not responding to the current dosage of her medications that the hospital increased the dosage. States the rehab discovered the patient was hiding her medications so they started crushing the patient's medications and put them in her food. States that because the patient hadn't taken her mediations in so long and that the dosage had been increased over the course of treatment at the hospital this may have caused the patient to be over-medicated. States that is also why the patient started refusing to eat at the rehab, because they were putting her medication in her food. Daughter would like to speak with patient's renal doctor and with Dr. Lima tomorrow if at all possible to discuss her care. States she has an appointment from 11-11:45 and another at 15:30. But any time other than that will be acceptable. Daughter, Dr. Chip Alfred may be reached at [phone]. Daughter has also informed CM that when patient is medically stable and ready for discharge from the hospital that she wants patient moved to a SNF closer to [place] so she won't be as far away from where daughter lives. SUPRIYA completed for "Any SNF close to [place]". Copy on chart. CM will continue to follow and assist as needed with discharge planning / needs. Api Developer: Cheryl Delarosa DP export: 04/25/20 12:45 pm Patient Name: KRISTI WRIGHT Page [phone] at 1331 All edits/amendments must be made on the electronic document DICTATION DATE: 04/26/20 133 VICE PRESIDENT DIVERSITY: KASIE 04/26/20 133 RPT#: [id number] DC DATE: STATUS: ADM IN [facility] [address] [place] [address] END OF REPORT
--- NOTE | 2020-04-26 14:59 | NUR ---
REMOVED PATIENT CATHETER, PATIENT TOLERATED WELL, CONTINUE WITH PLAN OF CARE
--- NOTE | 2020-04-26 16:13 | NUR ---
PATIENT MAX ASST X2 TO GET UP TO BEDSIDE. PATIENT MIN ASST TO STAY SITTING UP RIGHT SHE WOULD LEAN OVER. ATTEMTPED TO STAND PATIENT BUT WAS UNABLE PATIENT WAS TOTAL LIFT. ASSISTED PATIENT TO LAY BACK DOWN WITH MAX ASST.
--- NOTE | 2020-04-26 16:19 | NUR ---
OT NOTE: PT EXHIBITED INCREASED PARTICIPATION THIS AM. PT REQUIRED MAX A WITH SUPINE TO SIT.PT COMPLETED SITTING BALANCE WITH MIN-MOD A. PT ATTEMPTED A SIT TO STAND. PT STATED SHE WANTS TO GET BETTER. PT REQUIRED TOTAL A FOR LB HYGIENE TASKS. PT EXHIBITED INCREASED ACTIVITY TOLERANCE THIS AM. [phone] THANK YOU,LEELA LUCAS
--- NOTE | 2020-04-26 16:55 | NUR ---
OT NOTE: D/W NURSING TODAY WHO INFORMED THERAPIST THAT PT WAS AWAKE AGAIN MOST OF THEN EVENING. APPARENTLY PT HAS HER DAYS AND NIGHTS CONFUSED. PT EXTREMELEY LETHARGIC AGAIN TODAY; MAX ASSIST FOR BED MOB, SUPINE TO SIT, AND STATIC SITTING. MAX ASSIST X 2 FOR PERINEAL CARE. PT WITH LIQUID BM. NUMEROUS ATTEMPTS TO HAVE PT PERFORM FEEDING, GROOMING, ETC, BUT UNABLE TO KEEP PT AWAKE LONG ENOUGH TO PARTIICPATE. AFTER DISCUSSING WITH NURSING, IT SOUNDS LIKE PT IS VERY MOTIVATED WHEN NOT SO LETHARGIC. IF WE CAN GET AWAKE/SLEEP SCHEDULE CORRECTED, I THINK SHE WILL DO WELL. SUNNY WRIGHT, OTR/L [phone]
[2020-04-26 17:11] VITALS: BP 130/99
[2020-04-26 20:00] VITALS: BP 158/64
--- NOTE | 2020-04-26 20:00 | NUR ---
PT LYING IN BED SLEEPING WHEN THIS NURSE TOOK OVER CARE. WOKE PT UP TO TAKE HS MEDS. PT DID NOT WANT TO WAKE UP BUT EVENTUALLY DID ENOUGH TO TAKE MEDS. NO S/S OF ASPIRATION AND HOB ELEVATED WHILE TAKING THEM. PT THEN THREW BLANKET OVER HER HEAD AND WENT BACK TO SLEEP AFTER. CL IN REACH, BED ALARM ON
[2020-04-27] VITALS: BP 140/58
--- NOTE | 2020-04-27 00:12 | NUR ---
PT LYING IN BED SLEEPING WITHOUT DISTRESS, MONITORS CALLED STATING PT TELE HAD COME OFF. PULLED BLANKET OFF FROM PTS HEAD TO CHECK TELE LEADS AND PT GRABBED BLANKETS AND PUSHED MY HANDS AWAY TRYING TO COVER BACK UP. PT FINALLY COOPERATED ENOUGH TO LET ME PUT TELE LEADS BACK ON THEN COVERED HEAD AND WENT BACK TO SLEEP
[2020-04-27 04:00] VITALS: BP 135/61
[2020-04-27 05:36] LABS: BASOPHILS 1.4 % (0-2); HEMOGLOBIN 10.5 g/dL (12-16); IMMATURE GRANULOCYTES 1.6 % (0-5); LYMPHOCYTE ABS# 1.92 10x3/uL (1.18-3.74); LYMPHOCYTES 22.6 % (15-50); MCH 27.4 pg (26.0-34.0); MCHC 32.8 g/dL (31.0-37.0); MEAN PLATELET VOLUME 8.9 fL (7.4-10.4); MONOCYTES 11.9 % (2-11); NEUTROPHIL ABS# 4.97 10x3/uL (1.56-6.13); NEUTROPHILS 58.5 % (40-80); RBC 3.83 10x6/uL (4.00-5.40); RDW 15.7 % (11.5-14.5); WBC 8.5 10x3/uL (4.8-10.8)
[2020-04-27 05:55] LABS: MCV 83.6 fL (80.0-100.0); PLATELET COUNT 522 10x3/uL (130-400)
[2020-04-27 06:44] LABS: ALBUMIN 1.7 g/dL (3.4-5.0); ANION GAP 16.4 mmol/L (8-16); BILIRUBIN - TOTAL 0.31 mg/dL (0.2-1.3); CALCIUM 8.5 mg/dL (8.5-10.1); CREATININE - SERUM 4.7 mg/dL (0.6-1.3); POTASSIUM - SERUM 3.4 mmol/L (3.5-5.1); PROTEIN - SERUM 5.5 g/dL (6.4-8.2)
[2020-04-27 08:37] VITALS: BP 145/60
--- NOTE | 2020-04-27 10:38 | NUR ---
PT IS RESTING IN BED WITH EYES CLOSED. RESPIRATIONS ARE SHALLOW/EVEN AND UNLABORED. PT IS EASILY AROUSED WITH VERBAL STIMULATION AND IS ORIENTED TO SELF AND PLACE AT THIS TIME. PT REORIENTED TO TIME AND SITUATION. PIV TO RIGHT WRIST INFUSING PER ORDER WITHOUT COMPROMISE. ALL FALL PRECAUTIONS IN PLACE. SCDS ON BLE. INCENTIVE SPIROEMTER ENCOURAGED. PT REFUSES TO ATTEMPT IS AT THIS TIME. WILL CONT TO ATTEMPT IS. HAND SPINNER ON AND WITHOUT COMPROMISE AT THIS TIME. BED IS IN THE LOWEST POSITION. CALL LIGHT AND BEDSIDE TABLE ARE WITHIN REACH. SIDE RAILS X 2. PT DENIES FURTHER NEEDS. WILL CONT TO MONITOR.
--- NOTE | 2020-04-27 10:52 | NUR ---
PIV TO RIGHT WRIST IS RED/SWOLLEN. PIV REMOVED WITH CATHETER TIP INTACT. DRESSING APPLIED. PIV RESITED TO RIGHT FA X 1 ATTEMPT. PT TOLERATED WELL. BED IS IN THE LOWEST POSITION. CALL LIGHT AND BEDSIDE TABLE ARE WITHIN REACH. SIDE RAILS X 2. FALL PRECAUTIONS IN PLACE.
[2020-04-27 13:14] VITALS: BP 142/61
--- NOTE | 2020-04-27 13:28 | NUR ---
OT NOTE: PT PERFORMED BETTER TODAY. PT WAS STILL LETHARGIC BUT ABLE TO WAKE UP FOR THERAPY TODAY. ABLE TO PERFORM BED MOB INCLUDING ROLLING TO R SIDE WITH MIN ASSIST; SUPINE TO SIT WITH MAX ASSIST; STATIC SITTING BALANCE WITH MIN ASSIST. PT LEANS TOWARDS R SIDE; PERFORMED WT BEARING THROUGH R UE BOTH IN SITTING AND STANDING (REUQIRING MOD ASSIST) ..SIT TO STAND WITH MOD ASSIST X 2 WITH WALKER; ABLE TO MAINTAIN STANDING WITH MOD ASSIST X APPROX 40 SECONDS. UNABLE TO SIDE STEP TODAY. TOTAL ASSIST WITH LAUREN CARE.. LINENS CHANGED..REPOSITIONED IN BED WITH MAX ASSIST. ATTEMPTED AROM ACT WITH R UE SUNNY WRIGHT, OTR/L [phone]
--- NOTE | 2020-04-27 13:36 | NUR ---
Nutrition follow-up: Diet order: Consistent CHO puree with nectar thick liquids PO intake continues to be poor; however, po intake has improved a little Labs reviewed Wt: 137# Recommendations: Appetite stimulant Follow-up: 05/02/20
--- NOTE | 2020-04-27 15:00 | NUR ---
OT NOTE: PT DID WELL TODAY. PT REQUIRED MOD A X S FOR BED MOB . PT COMPLETED SIT TO STAND WITH MOD A X2. PT REQUIRED TOTAL A FOR LB HYGIENE. PT EXHIBITED INCREASED ACTIVITY TOLERANCE AND PARTICIPATION. [id number] THANK YOU,LEELA LUCAS
[2020-04-27 18:27] VITALS: BP 119/71
[2020-04-27 20:00] VITALS: BP 133/61
[2020-04-28] VITALS: BP 143/49
[2020-04-28 04:00] VITALS: BP 128/65
--- NOTE | 2020-04-28 04:47 | NUR ---
I have reviewed this patient and I concur with the Shift Assessment completed by the Licensed Practical Nurse today this shift.
[2020-04-28 05:19] LABS: BASOPHILS 1.1 % (0-2); EOSINOPHILS 2.4 % (0-7); HEMATOCRIT 31.2 % (36.0-48.0); HEMOGLOBIN 10.4 g/dL (12-16); IMMATURE GRANULOCYTES 0.8 % (0-5); LYMPHOCYTE ABS# 1.76 10x3/uL (1.18-3.74); LYMPHOCYTES 17.9 % (15-50); MCHC 33.3 g/dL (31.0-37.0); MCV 83.9 fL (80.0-100.0); MEAN PLATELET VOLUME 8.9 fL (7.4-10.4); MONOCYTES 9.3 % (2-11); NEUTROPHIL ABS# 6.73 10x3/uL (1.56-6.13); NEUTROPHILS 68.5 % (40-80); PLATELET COUNT 603 10x3/uL (130-400); RBC 3.72 10x6/uL (4.00-5.40); WBC 9.8 10x3/uL (4.8-10.8)
[2020-04-28 05:27] LABS: ALBUMIN 1.9 g/dL (3.4-5.0); ANION GAP 15.7 mmol/L (8-16); BILIRUBIN - TOTAL 0.35 mg/dL (0.2-1.3); CALCIUM 8.3 mg/dL (8.5-10.1); CARBON DIOXIDE 21.6 mmol/L (21.0-32.0); CREATININE - SERUM 4.8 mg/dL (0.6-1.3); POTASSIUM - SERUM 4.3 mmol/L (3.5-5.1)
--- NOTE | 2020-04-28 09:00 | NUR ---
ALERT AND ORIENTED TO SELF AND SUROUNDINGS BUT UNABLE TO FOLLOW DIRECTIONS WITH INCENTIVE SPIROMETRY. LUNGS DIMINISHED X4 ANTERIOR. ABDOMEN SLIGHTLY DISTENDED WITH HX OF URINE RETENTION NOTED WITH BLADDER SCAN REVEALING 480CC. MD HERE WITH NEW ORDER NOTED. TELEMETRY INTACT WELL SCD'S. IVF INFUSING TO RIGHT F/A WITH NO S/S OF INFECTION/INFILTRATION NOTED. ENCOURAGED TO USE CALL LIGHT FOR ASSSIST
[2020-04-28 09:23] VITALS: BP 166/64
--- NOTE | 2020-04-28 11:00 | NUR ---
16F COOPER CATH PLACED WITH 500CC RESIDUAL NOTED. REPOSITIONED FOR COMFORT.
--- NOTE | 2020-04-28 11:47 | MORECARE ---
CASE MANAGEMENT DISCHARGE SUMMARY PATIENT: KRISTI WRIGHT UNIT: [id number] ADM DATE: 04/07/20 AGE: 64 : 59 SEX: F ROOM/BED: D.2219 AUTHOR: CATHERINE,DOC PHYSICIAN: REFERRING PHYSICIAN: SPIKE DANG MD DATE OF SERVICE: 04/28/20 Discharge Plan Patient Name: KRISTI WRIGHT Facility: [facility]:[place] : 1955 Planned Disposition: Fci Facility Anticipated Discharge Date: Discharge Date: Expected LOS: Initial Reviewer: [email or web address] Initial Review Date: 04/07/2020 Generated: 04/28/20 12:46 pm Comments DCP- Discharge Planning Updated by [id number]: Amadna Foss on 04/28/20 10:[address] SPOKE WITH LEIDA AT [facility] AND THEY DO NOT HAVE A BED AT THIS TIME I WILL CALL THE DAUGHTER AND LET HER KNOW DCP- Discharge Planning Updated by [id number]: Amanda Foss on 04/26/20 12:[address] I reached out to Leida at [facility] to see the status of the referral. She stated that they have it and are still reviewing it. CM will wait for an answer. DCP- Discharge Planning Updated by [email or web address]: Amanda Foss on 04/25/20 12:[address] Called [facility] in [facility] & spoke with Leida, the admissions ([phone]) about a referral to their facility per daughter's request. She stated that she has not received any referral yet nor had she spoke with her daughter. I will send over the referral and they will take a look. Today the patient is VERY sleepy and not doing anything with therapy. I spoke with Danelle DOBBINS about our goal and they will try later today to get her up or tomorrow morning depending how the patient is feeling and doing CM to follow and assist DCP- Discharge Planning Updated by [email or web address]: Amanda Foss on 04/20/20 12:[address] CM SPOKE WITH PATIENT'S DAUGHTER ABOUT PLAN OF CARE. I UPDATED HER ON WHAT WAS GOING ON AND CHIP STATES THAT HER PLAN STILL WILL BE TO GO TO [facility] DCP- Discharge Planning Updated by [email or web address]: Cheryl Rosado on 04/11/20 6:[address] Patient Name: KRISTI WRIGHT Admission Status: ER Accout number: [id number] Admission Date: 04-07-2020 : 1955 Admission Diagnosis:ACUTE KIDNEY FAILURE, UNSPECIFIED Attending: SPIKE CORBETT Current LOS: 4 Anticipated DC Date: Planned Disposition: [facility]ci Facility Primary Insurance: MEDICARE PART A ONLY Discharge Planning Comments: CM called and spoke with patient's daughter about discharge planning. CM explained that the physicians have attempted to call her, but were not able to leave her a voice message because her voice mail box is full. Daughter states that patient was just recently admitted to [facility] for rehab. States patient just recently became confused. Daughter states she is a Psychiatrist and knows the difference between Dementia and Delirium and the course of treatment for both conditions. States that if her mother has Dementia it is in the early stages. States she believes the patient is suffering from Delirium. States that patient's current state of confusion is not her baseline. States patient was still able to give people the daughter's phone number from memory just two weeks ago. Daughter went on to explain that she thinks the patient is over medicated. States that the patient was not taking her mediations. That she was hiding them in her bed. And that because she was not responding to the current dosage of her medications that the hospital increased the dosage. States the rehab discovered the patient was hiding her medications so they started crushing the patient's medications and put them in her food. States that because the patient hadn't taken her mediations in so long and that the dosage had been increased over the course of treatment at the hospital this may have caused the patient to be over-medicated. States that is also why the patient started refusing to eat at the rehab, because they were putting her medication in her food. Daughter would like to speak with patient's renal doctor and with Dr. Lima tomorrow if at all possible to discuss her care. States she has an appointment from 11-11:45 and another at 15:30. But any time other than that will be acceptable. Daughter, Dr. Chip Alfred may be reached at [phone]. Daughter has also informed CM that when patient is medically stable and ready for discharge from the hospital that she wants patient moved to a SNF closer to [address] so she won't be as far away from where daughter lives. SUPRIYA completed for "Any SNF close to [address]". Copy on chart. CM will continue to follow and assist as needed with discharge planning / needs. Exhibits Coordinator: Cheryl Delarosa DP export: 04/26/20 12:31 p Patient Name: KRISTI WRIGHT Page [id number] at 1147 All edits/amendments must be made on the electronic document DICTATION DATE: 04/28/20 1147 PATTERN FITTER: KASIE 04/28/20 1147 RPT#: [id number] DC DATE: STATUS: ADM IN [facility] [address] [place] [address] END OF REPORT
--- NOTE | 2020-04-28 11:54 | MORECARE ---
CASE MANAGEMENT DISCHARGE SUMMARY PATIENT: KRISTI WRIGHT UNIT: [id number] ADM DATE: 04/07/20 AGE: 64 : 59 SEX: F ROOM/BED: D.2219 AUTHOR: CATHERINE,DOC PHYSICIAN: REFERRING PHYSICIAN: SPIKE DANG MD DATE OF SERVICE: 04/28/20 Discharge Plan Patient Name: KRISTI WRIGHT Facility: [facility]:[place] : 1955 Planned Disposition: Detention Facility Anticipated Discharge Date: Discharge Date: Expected LOS: Initial Reviewer: [id number] Initial Review Date: 04/07/2020 Generated: 04/28/20 12:54 pm Comments DCP- Discharge Planning Updated by [id number]: Amanda Foss on 04/28/20 10:[address] SPOKE WITH LEIDA AT [facility] AND THEY DO NOT HAVE A BED AT THIS TIME I WILL CALL THE DAUGHTER AND LET HER KNOW DCP- Discharge Planning Updated by [id number]: Amanda Foss on 04/26/20 12:[address] I reached out to Leida at [facility] to see the status of the referral. She stated that they have it and are still reviewing it. CM will wait for an answer. DCP- Discharge Planning Updated by [email or web address]: Amanda Foss on 04/25/20 12:[address] Called [facility] in [facility] & spoke with Leida, the admissions ([phone]) about a referral to their facility per daughter's request. She stated that she has not received any referral yet nor had she spoke with her daughter. I will send over the referral and they will take a look. Today the patient is VERY sleepy and not doing anything with therapy. I spoke with Danelle DOBBINS about our goal and they will try later today to get her up or tomorrow morning depending how the patient is feeling and doing CM to follow and assist DCP- Discharge Planning Updated by [email or web address]: Amanda Foss on 04/20/20 12:[address] CM SPOKE WITH PATIENT'S DAUGHTER ABOUT PLAN OF CARE. I UPDATED HER ON WHAT WAS GOING ON AND CHIP STATES THAT HER PLAN STILL WILL BE TO GO TO [facility] DCP- Discharge Planning Updated by [id number]: Cheryl Rosado on 04/11/20 6:[address] Patient Name: KRISTI WRIGHT Admission Status: ER Accout number: [id number] Admission Date: 04-07-2020 : 1955 Admission Diagnosis:ACUTE KIDNEY FAILURE, UNSPECIFIED Attending: SPIKE CORBETT Current LOS: 4 Anticipated DC Date: Planned Disposition: Detention Facility Primary Insurance: MEDICARE PART A ONLY Discharge Planning Comments: CM called and spoke with patient's daughter about discharge planning. CM explained that the physicians have attempted to call her, but were not able to leave her a voice message because her voice mail box is full. Daughter states that patient was just recently admitted to [facility] for rehab. States patient just recently became confused. Daughter states she is a Psychiatrist and knows the difference between Dementia and Delirium and the course of treatment for both conditions. States that if her mother has Dementia it is in the early stages. States she believes the patient is suffering from Delirium. States that patient's current state of confusion is not her baseline. States patient was still able to give people the daughter's phone number from memory just two weeks ago. Daughter went on to explain that she thinks the patient is over medicated. States that the patient was not taking her mediations. That she was hiding them in her bed. And that because she was not responding to the current dosage of her medications that the hospital increased the dosage. States the rehab discovered the patient was hiding her medications so they started crushing the patient's medications and put them in her food. States that because the patient hadn't taken her mediations in so long and that the dosage had been increased over the course of treatment at the hospital this may have caused the patient to be over-medicated. States that is also why the patient started refusing to eat at the rehab, because they were putting her medication in her food. Daughter would like to speak with patient's renal doctor and with Dr. Lima tomorrow if at all possible to discuss her care. States she has an appointment from 11-11:45 and another at 15:30. But any time other than that will be acceptable. Daughter, Dr. Chip Alfred may be reached at [phone]. Daughter has also informed CM that when patient is medically stable and ready for discharge from the hospital that she wants patient moved to a SNF closer to [place] so she won't be as far away from where daughter lives. SUPRIYA completed for "Any SNF close to [place]". Copy on chart. CM will continue to follow and assist as needed with discharge planning / needs. Scientific Database Curator: Cheryl Rosado External Providers External Provider: OTHER-OTHER Next Contact Date: Service Request Date: Service Type: Resolution: Reviewer: Comments: Last DP export: 04/28/20 10:47 a Patient Name: KRISTI WRIGHT Page [phone] at 1154 All edits/amendments must be made on the electronic document DICTATION DATE: 04/28/20 1154 DIRECTOR MARKETING ANALYTICS: KASIE 04/28/20 1154 RPT#: [id number] DC DATE: STATUS: ADM IN [facility] [address] [place] [address] END OF REPORT
--- NOTE | 2020-04-28 12:02 | MORECARE ---
CASE MANAGEMENT DISCHARGE SUMMARY PATIENT: KRISTI WRIGHT UNIT: [id number] ADM DATE: 04/07/20 AGE: 64 : 59 SEX: F ROOM/BED: D.2219 AUTHOR: CATHERINE,DOC PHYSICIAN: REFERRING PHYSICIAN: SPIKE DANG MD DATE OF SERVICE: 04/28/20 Discharge Plan Patient Name: KRISTI WRIGHT Facility: [facility]:[place] : 1955 Planned Disposition: Detention Facility Anticipated Discharge Date: Discharge Date: Expected LOS: Initial Reviewer: [email or web address] Initial Review Date: 04/07/2020 Generated: 04/28/20 1:02 pm Comments DCP- Discharge Planning Updated by [email or web address]: Amanda Foss on 04/28/20 10:[address] SPOKE WITH DAUGHTER AND SHE STATED THAT HER SECOND CHOICE WAS [facility], I HAVE SENT THE REFERRAL TO MICHELLE WHO IS THE TURF KEEPER FOR THEM DCP- Discharge Planning Updated by [id number]: Amanda Foss on 04/28/20 10:[address] SPOKE WITH LEIDA AT [facility] AND THEY DO NOT HAVE A BED AT THIS TIME I WILL CALL THE DAUGHTER AND LET HER KNOW DCP- Discharge Planning Updated by [email or web address]: Amanda Foss on 04/26/20 12:[address] I reached out to Leida at [facility] to see the status of the referral. She stated that they have it and are still reviewing it. CM will wait for an answer. DCP- Discharge Planning Updated by [id number]: Amanda Foss on 04/25/20 12:[address] Called [facility] in [place] & spoke with Leida, the admissions ([phone]) about a referral to their facility per daughter's request. She stated that she has not received any referral yet nor had she spoke with her daughter. I will send over the referral and they will take a look. Today the patient is VERY sleepy and not doing anything with therapy. I spoke with Danelle DOBBINS about our goal and they will try later today to get her up or tomorrow morning depending how the patient is feeling and doing CM to follow and assist DCP- Discharge Planning Updated by [email or web address]: Amanda Foss on 04/20/20 12:[address] CM SPOKE WITH PATIENT'S DAUGHTER ABOUT PLAN OF CARE. I UPDATED HER ON WHAT WAS GOING ON AND CHIP STATES THAT HER PLAN STILL WILL BE TO GO TO [facility] [place] DCP- Discharge Planning Updated by [email or web address]: Cheryl Rosado on 04/11/20 6:[address] Patient Name: KRISTI WRIGHT Admission Status: ER Accout number: [id number] Admission Date: 04-07-2020 : 1955 Admission Diagnosis:ACUTE KIDNEY FAILURE, UNSPECIFIED Attending: SPIKE CORBETT Current LOS: 4 Anticipated DC Date: Planned Disposition: Detention Facility Primary Insurance: MEDICARE PART A ONLY Discharge Planning Comments: CM called and spoke with patient's daughter about discharge planning. CM explained that the physicians have attempted to call her, but were not able to leave her a voice message because her voice mail box is full. Daughter states that patient was just recently admitted to [facility] for rehab. States patient just recently became confused. Daughter states she is a Psychiatrist and knows the difference between Dementia and Delirium and the course of treatment for both conditions. States that if her mother has Dementia it is in the early stages. States she believes the patient is suffering from Delirium. States that patient's current state of confusion is not her baseline. States patient was still able to give people the daughter's phone number from memory just two weeks ago. Daughter went on to explain that she thinks the patient is over medicated. States that the patient was not taking her mediations. That she was hiding them in her bed. And that because she was not responding to the current dosage of her medications that the hospital increased the dosage. States the rehab discovered the patient was hiding her medications so they started crushing the patient's medications and put them in her food. States that because the patient hadn't taken her mediations in so long and that the dosage had been increased over the course of treatment at the hospital this may have caused the patient to be over-medicated. States that is also why the patient started refusing to eat at the rehab, because they were putting her medication in her food. Daughter would like to speak with patient's renal doctor and with Dr. Lima tomorrow if at all possible to discuss her care. States she has an appointment from 11-11:45 and another at 15:30. But any time other than that will be acceptable. Daughter, Dr. Gosscarrie Alfred may be reached at [phone]. Daughter has also informed CM that when patient is medically stable and ready for discharge from the hospital that she wants patient moved to a SNF closer to [place] so she won't be as far away from where daughter lives. SUPRIYA completed for "Any SNF close to [place]". Copy on chart. CM will continue to follow and assist as needed with discharge planning / needs. Bakery Products Checker: Cheryl Delarosa DP export: 04/28/20 10:54 a Patient Name: KRISTI WRIGHT Page [phone] at 1202 All edits/amendments must be made on the electronic document DICTATION DATE: 04/28/20 1202 ROOFER APPLICATOR: KASIE 04/28/20 1202 RPT#: [id number] DC DATE: STATUS: ADM IN [facility] [address] [place] [address] END OF REPORT
[2020-04-28 12:34] VITALS: BP 118/48
--- NOTE | 2020-04-28 14:19 | MORECARE ---
CASE MANAGEMENT DISCHARGE SUMMARY PATIENT: KRISTI WRIGHT UNIT: [id number] ADM DATE: 04/07/20 AGE: 64 : 59 SEX: F ROOM/BED: D.2219 AUTHOR: CATHERINE,DOC PHYSICIAN: REFERRING PHYSICIAN: SPIKE DANG MD DATE OF SERVICE: 04/28/20 Discharge Plan Patient Name: KRISTI WRIGHT Facility: [facility]:[place] : 1955 Planned Disposition: [facility] Facility Anticipated Discharge Date: Discharge Date: Expected LOS: Initial Reviewer: [email or web address] Initial Review Date: 04/07/2020 Generated: 04/28/20 3:18 pm Comments DCP- Discharge Planning Updated by [email or web address]: Amanda Foss on 04/28/20 1:[address] MICHELLE WITH [facility] CALLED AND STATED THAT THEY DO NOT HAVE A BED TILL April DCP- Discharge Planning Updated by [email or web address]: Amanda Foss on 04/28/20 10:[address] SPOKE WITH DAUGHTER AND SHE STATED THAT HER SECOND CHOICE WAS [facility], I HAVE SENT THE REFERRAL TO MICHELLE WHO IS THE EARTH AUGER OPERATOR FOR THEM DCP- Discharge Planning Updated by [email or web address]: Amanda Foss on 04/28/20 10:[address] SPOKE WITH LEIDA AT [facility] AND THEY DO NOT HAVE A BED AT THIS TIME I WILL CALL THE DAUGHTER AND LET HER KNOW DCP- Discharge Planning Updated by [id number]: Amanda Foss on 04/26/20 12:[address] I reached out to Leida at [facility] to see the status of the referral. She stated that they have it and are still reviewing it. CM will wait for an answer. DCP- Discharge Planning Updated by [email or web address]: Amanda Foss on 04/25/20 12:[address] Called [facility] in [facility] & spoke with Leida, the admissions ([phone]) about a referral to their facility per daughter's request. She stated that she has not received any referral yet nor had she spoke with her daughter. I will send over the referral and they will take a look. Today the patient is VERY sleepy and not doing anything with therapy. I spoke with Danelle DOBBINS about our goal and they will try later today to get her up or tomorrow morning depending how the patient is feeling and doing CM to follow and assist DCP- Discharge Planning Updated by [email or web address]: Amanda Prudence on 04/20/20 12:[address] CM SPOKE WITH PATIENT'S DAUGHTER ABOUT PLAN OF CARE. I UPDATED HER ON WHAT WAS GOING ON AND CHIP STATES THAT HER PLAN STILL WILL BE TO GO TO [facility] DCP- Discharge Planning Updated by [email or web address]: Cheryl Rosado on 04/11/20 6:[address] Patient Name: KRISTI WRIGHT Admission Status: ER Accout number: [id number] Admission Date: 04-07-2020 : 1955 Admission Diagnosis:ACUTE KIDNEY FAILURE, UNSPECIFIED Attending: SPIKE CORBETT Current LOS: 4 Anticipated DC Date: Planned Disposition: Chcf Facility Primary Insurance: MEDICARE PART A ONLY Discharge Planning Comments: CM called and spoke with patient's daughter about discharge planning. CM explained that the physicians have attempted to call her, but were not able to leave her a voice message because her voice mail box is full. Daughter states that patient was just recently admitted to [facility] for rehab. States patient just recently became confused. Daughter states she is a Psychiatrist and knows the difference between Dementia and Delirium and the course of treatment for both conditions. States that if her mother has Dementia it is in the early stages. States she believes the patient is suffering from Delirium. States that patient's current state of confusion is not her baseline. States patient was still able to give people the daughter's phone number from memory just two weeks ago. Daughter went on to explain that she thinks the patient is over medicated. States that the patient was not taking her mediations. That she was hiding them in her bed. And that because she was not responding to the current dosage of her medications that the hospital increased the dosage. States the rehab discovered the patient was hiding her medications so they started crushing the patient's medications and put them in her food. States that because the patient hadn't taken her mediations in so long and that the dosage had been increased over the course of treatment at the hospital this may have caused the patient to be over-medicated. States that is also why the patient started refusing to eat at the rehab, because they were putting her medication in her food. Daughter would like to speak with patient's renal doctor and with Dr. Lima tomorrow if at all possible to discuss her care. States she has an appointment from 11-11:45 and another at 15:30. But any time other than that will be acceptable. Daughter, Dr. Chip Alfred may be reached at [phone]. Daughter has also informed CM that when patient is medically stable and ready for discharge from the hospital that she wants patient moved to a SNF closer to [place] so she won't be as far away from where daughter lives. SUPRIYA completed for "Any SNF close to [place]". Copy on chart. CM will continue to follow and assist as needed with discharge planning / needs. Sealer Dry Cell: Cheryl Delarosa DP export: 04/28/20 11:02 a Patient Name: KRISTI WRIGHT Page 13730 at 1419 All edits/amendments must be made on the electronic document DICTATION DATE: 04/28/201417 EMBROIDERER: KASIE 04/28/201417 RPT#: [id number] DC DATE: STATUS: ADM IN [facility] [address] [place] [address] END OF REPORT
--- NOTE | 2020-04-28 14:34 | NUR ---
OT NOTE: PT DOING BETTER TODAY. REMAINS VERY LETHARGIC, HOWEVER, PT STATES THAT SHE WANTS TO GO HOME.. EXPLAINED THAT SHE HAD TO BE STRONGER BEFORE GOING HOME. PT WANTING TO SIT UP IN CHAIR..MAX ASSIST FOR PERINEAL CARE; MAX ASSIST FOR BATHING AND DRESSING; PT ABLE TO PERFORM FACE WASHING WITH WASH CLOTH..MAX ASSIST X 2 FOR SUPINE TO SIT; MOD ASSIST FOR STATIC SITTING BALANCE; A/AROM EXS WITH B UES.. PT VERY WEAK IN TRUNK AND ALL EXTREMETIES. TOTAL ASSIST FOR TRANSFER TO CHAIR WITH ASSIST OF CogniTens TECH. PT TOLERATED SITTING UP IN CHAIR APPROX 1 HR. SUNNY WRIGHT, OTR/L [phone]
[2020-04-28 17:46] VITALS: BP 141/61
[2020-04-28 20:16] VITALS: BP 114/89
[2020-04-29 00:38] VITALS: BP 153/54
--- NOTE | 2020-04-29 02:36 | NUR ---
I have reviewed this patient and I concur with the Shift Assessment completed by the Licensed Practical Nurse today this shift.
[2020-04-29 04:57] VITALS: BP 143/42
[2020-04-29 06:31] LABS: BASOPHILS 1.6 % (0-2); EOSINOPHILS 3.1 % (0-7); HEMATOCRIT 28.3 % (36.0-48.0); HEMOGLOBIN 9.4 g/dL (12-16); IMMATURE GRANULOCYTES 1.3 % (0-5); LYMPHOCYTE ABS# 1.78 10x3/uL (1.18-3.74); LYMPHOCYTES 20.6 % (15-50); MCH 27.6 pg (26.0-34.0); MCHC 33.2 g/dL (31.0-37.0); MCV 83.2 fL (80.0-100.0); MEAN PLATELET VOLUME 8.6 fL (7.4-10.4); MONOCYTES 9.3 % (2-11); NEUTROPHIL ABS# 5.54 10x3/uL (1.56-6.13); NEUTROPHILS 64.1 % (40-80); PLATELET COUNT 524 10x3/uL (130-400); RDW 16.2 % (11.5-14.5); WBC 8.6 10x3/uL (4.8-10.8)
[2020-04-29 06:59] LABS: ALBUMIN 1.8 g/dL (3.4-5.0); BILIRUBIN - TOTAL 0.21 mg/dL (0.2-1.3); CARBON DIOXIDE 22.1 mmol/L (21.0-32.0); CREATININE - SERUM 4.9 mg/dL (0.6-1.3); POTASSIUM - SERUM 4.1 mmol/L (3.5-5.1); PROTEIN - SERUM 4.9 g/dL (6.4-8.2)
[2020-04-29 07:33] VITALS: BP 152/62
[2020-04-29 11:43] VITALS: BP 145/65
[2020-04-29 13:57] LABS: BILIRUBIN NEGATIVE (NEGATIVE); KETONE NEGATIVE (NEGATIVE); NITRITE NEGATIVE (NEGATIVE); UROBILINOGEN NORMAL mg/dL (< 2)
[2020-04-29 13:58] LABS: BACTERIA FEW HPF (NONE SEEN); WHITE CELLS - URINE 2 HPF (0-4)
[2020-04-29 15:25] VITALS: BP 147/67
--- NOTE | 2020-04-29 19:00 | NUR ---
BEDSIDE REPORT RECEIVED AND CARE OF PT ASSUMED. PT LYING IN HIGH VALERA'S POSITION. IV TO RIGHT FA PATENT WITH D5W INFUSING AT 10 ML/HR. COOPER CATHETER IN PLACE WITH YELLOW URINE IN COLLECTION BAG. WILL MONITOR FOR NEEDS.
[2020-04-29 20:02] VITALS: BP 153/63
--- NOTE | 2020-04-29 20:08 | NUR ---
HS MEDICATIONS GIVEN. WILL CONTINUE TO MONITOR FOR NEEDS.
[2020-04-30 00:41] VITALS: BP 108/84
[2020-04-30 04:52] VITALS: BP 166/70
[2020-04-30 06:29] LABS: BASOPHILS 2.2 % (0-2); EOSINOPHILS 4.1 % (0-7); HEMATOCRIT 30.1 % (36.0-48.0); HEMOGLOBIN 9.9 g/dL (12-16); IMMATURE GRANULOCYTES 1.2 % (0-5); LYMPHOCYTE ABS# 1.69 10x3/uL (1.18-3.74); MCH 27.4 pg (26.0-34.0); MCHC 32.9 g/dL (31.0-37.0); MCV 83.4 fL (80.0-100.0); MEAN PLATELET VOLUME 8.6 fL (7.4-10.4); MONOCYTES 9.9 % (2-11); NEUTROPHIL ABS# 4.96 10x3/uL (1.56-6.13); NEUTROPHILS 61.6 % (40-80); PLATELET COUNT 551 10x3/uL (130-400); RBC 3.61 10x6/uL (4.00-5.40); RDW 16.2 % (11.5-14.5); WBC 8.1 10x3/uL (4.8-10.8)
[2020-04-30 06:52] LABS: ALBUMIN 2.1 g/dL (3.4-5.0); BILIRUBIN - TOTAL 0.29 mg/dL (0.2-1.3); CALCIUM 8.5 mg/dL (8.5-10.1); CARBON DIOXIDE 22.6 mmol/L (21.0-32.0); CREATININE - SERUM 4.7 mg/dL (0.6-1.3); POTASSIUM - SERUM 3.6 mmol/L (3.5-5.1); PROTEIN - SERUM 5.3 g/dL (6.4-8.2)
--- NOTE | 2020-04-30 09:00 | NUR ---
PATIENT AGITATED AND REFUSING TO LET ANYONE IN ROOM FOR PERSONAL CARE OR TAKE MEDICATIONS AT THIS TIME. SLAPPING AT STAFF WHEN TRYING TO FIX TELEMETRY LEADS. FALL PRECAUTIONS IN PLACE.
[2020-04-30 09:33] VITALS: BP 154/58
--- NOTE | 2020-04-30 10:15 | NUR ---
GEODON GIVEN IM FOR AGITATION AND WILL ATEMP TO GIVE MEDICATIONS AGAIN
[2020-04-30 12:23] VITALS: BP 128/67
[2020-04-30 16:00] VITALS: BP 113/91
--- NOTE | 2020-04-30 19:00 | NUR ---
BEDSIDE REPORT RECEIVED AND CARE OF PT ASSUMED. PT LYING IN MID VALERA'S POSITION WITH EYES CLOSED AND EASY RESPIRATIONS. IV TO RIGHT FA PATENT WITH D5W INFUSING AT 10 ML/HR. WILL MONITOR FOR NEEDS.
[2020-04-30 20:00] VITALS: BP 146/53
--- NOTE | 2020-04-30 20:08 | NUR ---
UNABLE TO GIVE HS MEDICATIONS PT VERY SLEEPY AND WILL NOT AROUSE ENOUGH TO TAKE PO MEDS.
[2020-05-01] VITALS: BP 162/60
--- NOTE | 2020-05-01 03:49 | NUR ---
PT HAS BEEN SLEEPING MOST OF THE NIGHT. WHEN SHE IS AWAKEN SHE IS HATEFUL AND YELLING FOR US TO GET OUT OF HER ROOM. REFUSING LABS AND YELLING AT THE STEEL ROD BUSTER.
[2020-05-01 04:00] VITALS: BP 169/69
--- NOTE | 2020-05-01 06:16 | NUR ---
PT REFUSED AM LABS...UNABLE TO PERFORM ELECTROLYTE PROTOCOL.
[2020-05-01 08:36] VITALS: BP 173/82
[2020-05-01 10:12] LABS: BASOPHILS 1.7 % (0-2); EOSINOPHILS 1.9 % (0-7); HEMATOCRIT 31.1 % (36.0-48.0); HEMOGLOBIN 10.4 g/dL (12-16); IMMATURE GRANULOCYTES 0.7 % (0-5); LYMPHOCYTES 10.3 % (15-50); MCH 28.2 pg (26.0-34.0); MCHC 33.4 g/dL (31.0-37.0); MCV 84.3 fL (80.0-100.0); MEAN PLATELET VOLUME 8.5 fL (7.4-10.4); MONOCYTES 8.2 % (2-11); NEUTROPHIL ABS# 8.25 10x3/uL (1.56-6.13); NEUTROPHILS 77.2 % (40-80); PLATELET COUNT 521 10x3/uL (130-400); RBC 3.69 10x6/uL (4.00-5.40); RDW 16.4 % (11.5-14.5)
[2020-05-01 10:13] LABS: WBC 10.7 10x3/uL (4.8-10.8)
[2020-05-01 10:32] LABS: ALBUMIN 1.9 g/dL (3.4-5.0); ANION GAP 13.2 mmol/L (8-16); BILIRUBIN - TOTAL 0.25 mg/dL (0.2-1.3); CALCIUM 8.4 mg/dL (8.5-10.1); CARBON DIOXIDE 21.6 mmol/L (21.0-32.0); CREATININE - SERUM 4.4 mg/dL (0.6-1.3); POTASSIUM - SERUM 3.8 mmol/L (3.5-5.1); PROTEIN - SERUM 5.8 g/dL (6.4-8.2)
--- NOTE | 2020-05-01 11:39 | MORECARE ---
CASE MANAGEMENT DISCHARGE SUMMARY PATIENT: KRISTI WRIGHT UNIT: [id number] ADM DATE: 04/07/20 AGE: 64 : 59 SEX: F ROOM/BED: D.221 AUTHOR: CATHERINE,DOC PHYSICIAN: REFERRING PHYSICIAN: SPIKE DANG MD DATE OF SERVICE: 05/01/20 Discharge Plan Patient Name: KRISTI WRIGHT Facility: [facility]:[place] : 1955 Planned Disposition: Snf Facility Anticipated Discharge Date: Discharge Date: Expected LOS: Initial Reviewer: [email or web address] Initial Review Date: 04/07/2020 Generated: 05/01/20 12:38 pm Comments DCP- Discharge Planning Updated by [email or web address]: Amanda Foss on 05/01/20 9:[address] ATTEMPTED TO CALL THE DAUGHTER AND DID NOT GET AN ANSWER WILL TRY AGAIN AT A LATER TIME DCP- Discharge Planning Updated by [email or web address]: Amanda Foss on 04/28/20 12:[address] MICHELLE WITH [facility] CALLED AND STATED THAT THEY DO NOT HAVE A BED TILL April DCP- Discharge Planning Updated by [email or web address]: Amanda Foss on 04/28/20 9:[address] SPOKE WITH DAUGHTER AND SHE STATED THAT HER SECOND CHOICE WAS [facility], I HAVE SENT THE REFERRAL TO MICHELLE WHO IS THE REST ROOM MAID FOR THEM DCP- Discharge Planning Updated by [email or web address]: Amanda Foss on 04/28/20 9:[address] SPOKE WITH LEIDA AT [facility] AND THEY DO NOT HAVE A BED AT THIS TIME I WILL CALL THE DAUGHTER AND LET HER KNOW DCP- Discharge Planning Updated by [email or web address]: Amanda Foss on 04/26/20 11:[address] I reached out to Leida at [facility] to see the status of the referral. She stated that they have it and are still reviewing it. CM will wait for an answer. DCP- Discharge Planning Updated by [email or web address]: Amanda Foss on 04/25/20 11:[address] Called [facility] in [facility] & spoke with Leida, the admissions ([phone]) about a referral to their facility per daughter's request. She stated that she has not received any referral yet nor had she spoke with her daughter. I will send over the referral and they will take a look. Today the patient is VERY sleepy and not doing anything with therapy. I spoke with Danelle DOBBINS about our goal and they will try later today to get her up or tomorrow morning depending how the patient is feeling and doing CM to follow and assist DCP- Discharge Planning Updated by [email or web address]: Amanda Foss on 04/20/20 11:[address] CM SPOKE WITH PATIENT'S DAUGHTER ABOUT PLAN OF CARE. I UPDATED HER ON WHAT WAS GOING ON AND CHIP STATES THAT HER PLAN STILL WILL BE TO GO TO [facility] IN [place] DCP- Discharge Planning Updated by [email or web address]: Cheryl Alonzo on 04/11/20 5:[address] Patient Name: KRISTI WRIGHT Admission Status: ER Accout number: [id number] Admission Date: 04-07-2020 : 1955 Admission Diagnosis:ACUTE KIDNEY FAILURE, UNSPECIFIED Attending: SPIKE CORBETT Current LOS: 4 Anticipated DC Date: Planned Disposition: Snf Facility Primary Insurance: MEDICARE PART A ONLY Discharge Planning Comments: CM called and spoke with patient's daughter about discharge planning. CM explained that the physicians have attempted to call her, but were not able to leave her a voice message because her voice mail box is full. Daughter states that patient was just recently admitted to [facility] for rehab. States patient just recently became confused. Daughter states she is a Psychiatrist and knows the difference between Dementia and Delirium and the course of treatment for both conditions. States that if her mother has Dementia it is in the early stages. States she believes the patient is suffering from Delirium. States that patient's current state of confusion is not her baseline. States patient was still able to give people the daughter's phone number from memory just two weeks ago. Daughter went on to explain that she thinks the patient is over medicated. States that the patient was not taking her mediations. That she was hiding them in her bed. And that because she was not responding to the current dosage of her medications that the hospital increased the dosage. States the rehab discovered the patient was hiding her medications so they started crushing the patient's medications and put them in her food. States that because the patient hadn't taken her mediations in so long and that the dosage had been increased over the course of treatment at the hospital this may have caused the patient to be over-medicated. States that is also why the patient started refusing to eat at the rehab, because they were putting her medication in her food. Daughter would like to speak with patient's renal doctor and with Dr. Lima tomorrow if at all possible to discuss her care. States she has an appointment from 11-11:45 and another at 15:30. But any time other than that will be acceptable. Daughter, Dr. Chip Alfred may be reached at [phone]. Daughter has also informed CM that when patient is medically stable and ready for discharge from the hospital that she wants patient moved to a SNF closer to [place] so she won't be as far away from where daughter lives. SUPRIYA completed for "Any SNF close to [place]". Copy on chart. CM will continue to follow and assist as needed with discharge planning / needs. Aircraft Steel Fabricator: Cheryl Delarosa DP export: 04/28/20 12:19 p Patient Name: KRISTI WRIGHT Page [id number] at 1139 All edits/amendments must be made on the electronic document DICTATION DATE: 05/01/201137 TOUCH UP PAINTER: KASIE 05/01/201137 RPT#: [id number] CT DATE: STATUS: ADM IN [facility] [address] [place] [address] END OF REPORT
--- NOTE | 2020-05-01 11:56 | MORECARE ---
CASE MANAGEMENT DISCHARGE SUMMARY PATIENT: KRISTI WRIGHT UNIT: [id number] ADM DATE: 04/07/20 AGE: 64 : 59 SEX: F ROOM/BED: D.2217 AUTHOR: CATHERINE,DOC PHYSICIAN: REFERRING PHYSICIAN: SPIKE DANG MD DATE OF SERVICE: 05/01/20 Discharge Plan Patient Name: KRISTI WRIGHT Facility: [facility]:[place] : 1955 Planned Disposition: Jail Facility Anticipated Discharge Date: Discharge Date: Expected LOS: Initial Reviewer: [email or web address] Initial Review Date: 04/07/2020 Generated: 05/01/20 12:55 pm Comments DCP- Discharge Planning Updated by [email or web address]: Amanda Foss on 05/01/20 9:[address] CALLED YU WITH [facility] ABOUT REFERRAL CLOSER TO [facility], SHE HAS 2 FACILITIES REFERRAL SENT AND WILL REVIEW AND GET BACK WITH ME DCP- Discharge Planning Updated by [email or web address]: Amanda Foss on 05/01/20 9:[address] ATTEMPTED TO CALL THE DAUGHTER AND DID NOT GET AN ANSWER WILL TRY AGAIN AT A LATER TIME DCP- Discharge Planning Updated by [email or web address]: Amanda Foss on 04/28/20 12:[address] MICHELLE WITH [facility] CALLED AND STATED THAT THEY DO NOT HAVE A BED TILL April DCP- Discharge Planning Updated by [email or web address]: Amanda Foss on 04/28/20 9:[address] SPOKE WITH DAUGHTER AND SHE STATED THAT HER SECOND CHOICE WAS [facility], I HAVE SENT THE REFERRAL TO MICHELLE WHO IS THE PLUGGER WORKER FOR THEM DCP- Discharge Planning Updated by [email or web address]: Amanda Foss on 04/28/20 9:[address] SPOKE WITH MIYA AT [facility] AND THEY DO NOT HAVE A BED AT THIS TIME I WILL CALL THE DAUGHTER AND LET HER KNOW DCP- Discharge Planning Updated by [email or web address]: Amanda Foss on 04/26/20 11:[address] I reached out to Miya at [facility] to see the status of the referral. She stated that they have it and are still reviewing it. CM will wait for an answer. DCP- Discharge Planning Updated by [email or web address]: Amanda Prudence on 04/25/20 11:[address] Called [facility] in [facility] & spoke with Miya, the admissions ([phone]) about a referral to their facility per daughter's request. She stated that she has not received any referral yet nor had she spoke with her daughter. I will send over the referral and they will take a look. Today the patient is VERY sleepy and not doing anything with therapy. I spoke with Danelle [facility] about our goal and they will try later today to get her up or tomorrow morning depending how the patient is feeling and doing CM to follow and assist DCP- Discharge Planning Updated by [email or web address]: Amanda Prudence on 04/20/20 11:[address] CM SPOKE WITH PATIENT'S DAUGHTER ABOUT PLAN OF CARE. I UPDATED HER ON WHAT WAS GOING ON AND LAYA STATES THAT HER PLAN STILL WILL BE TO GO TO [facility] IN [place] DCP- Discharge Planning Updated by [email or web address]: Cheryl Alonzo on 04/11/20 5:[address] Patient Name: KRISTI WRIGHT Admission Status: ER Accout number: [id number] Admission Date: 04-07-2020 : 1955 Admission Diagnosis:ACUTE KIDNEY FAILURE, UNSPECIFIED Attending: SPIKE CORBETT Current LOS: 4 Anticipated DC Date: Planned Disposition: Jail Facility Primary Insurance: MEDICARE PART A ONLY Discharge Planning Comments: CM called and spoke with patient's daughter about discharge planning. CM explained that the physicians have attempted to call her, but were not able to leave her a voice message because her voice mail box is full. Daughter states that patient was just recently admitted to [facility] for rehab. States patient just recently became confused. Daughter states she is a Psychiatrist and knows the difference between Dementia and Delirium and the course of treatment for both conditions. States that if her mother has Dementia it is in the early stages. States she believes the patient is suffering from Delirium. States that patient's current state of confusion is not her baseline. States patient was still able to give people the daughter's phone number from memory just two weeks ago. Daughter went on to explain that she thinks the patient is over medicated. States that the patient was not taking her mediations. That she was hiding them in her bed. And that because she was not responding to the current dosage of her medications that the hospital increased the dosage. States the rehab discovered the patient was hiding her medications so they started crushing the patient's medications and put them in her food. States that because the patient hadn't taken her mediations in so long and that the dosage had been increased over the course of treatment at the hospital this may have caused the patient to be over-medicated. States that is also why the patient started refusing to eat at the rehab, because they were putting her medication in her food. Daughter would like to speak with patient's renal doctor and with Dr. Lima tomorrow if at all possible to discuss her care. States she has an appointment from 11-11:45 and another at 15:30. But any time other than that will be acceptable. Daughter, Dr. Laya Alfred may be reached at [phone]. Daughter has also informed CM that when patient is medically stable and ready for discharge from the hospital that she wants patient moved to a SNF closer to [place] so she won't be as far away from where daughter lives. SUPRIYA completed for "Any SNF close to [place]". Copy on chart. CM will continue to follow and assist as needed with discharge planning / needs. Naprapath: Cheryl Rosado External Providers External Provider: [facility] [place] Next Contact Date: Service Request Date: Service Type: Resolution: Reviewer: Comments: Last DP export: 05/01/20 9:39 a Patient Name: KRISTI WRIGHT Page [phone] at 1156 All edits/amendments must be made on the electronic document DICTATION DATE: 05/01/20 1155 MANAGER HARBOR: KASIE 05/01/20 1155 RPT#: [id number] DC DATE: STATUS: ADM IN [facility] [address] [place] [address] END OF REPORT
[2020-05-01 12:26] VITALS: BP 180/79
--- NOTE | 2020-05-01 13:29 | NUR ---
PATIENT UPSET BECAUSE WE MOVED HER TO HER LEFT SIDE. HAS BEEN REFUSING TO TURN BUT EXPLAINED SHE CANT STAY ON THAT SIDE BECAUSE SHE COULD DEVELOPE A BED SORE. STILL LETHARGIC AND TIRED. IV INTACT. TELL ON. COOPER INTACT. CALL LIGHT WITHIN REACH.
--- NOTE | 2020-05-01 15:30 | NUR ---
PATIENT BED BATH GIVEN. DRESSING TO COCCYX CHANGED. IV INTACT. CALL LIGHT WITHIN REACH. BSCDS ON AND WORKING. COOPER INTACT..
[2020-05-01 17:00] VITALS: BP 152/76
--- NOTE | 2020-05-01 17:22 | NUR ---
OT NOTE: PT WAS LETHARGIC. PT REQUIRED MAX A FOR BED MOB TASKS. PT COMPLETED SITTING AT EOB WITH MIN A. PT COMPLETED BUE AAROM FOR INCREASED AX TOLERANCE. PT COMPLETED FACE HYGIENE WITH MIN A. PT COMPLETED ORAL HYGIENE WITH MOD-MAX A. [id number] THANK YOU,LEELA LUCAS
--- NOTE | 2020-05-01 19:00 | NUR ---
BEDSIDE REPORT RECEIVED AND CARE OF PT ASSUMED. PT LYING IN LOW VALERA'S POSITION WITH EYES CLOSED. IV TO RIGHT FA PATENT WITH D5W INFUSING AT 10 ML/HR. TELEMETRY IN PLACE AND READING SR AT THIS ASSESSMENT. WILL MONITOR FOR NEEDS.
--- NOTE | 2020-05-01 20:40 | NUR ---
HS MEDICATIONS GIVEN. WILL CONTINUE TO MONITOR FOR NEEDS.
[2020-05-01 21:33] VITALS: BP 149/60
[2020-05-02 00:39] VITALS: BP 145/60
[2020-05-02 05:15] VITALS: BP 150/60
[2020-05-02 06:13] LABS: ALBUMIN 1.7 g/dL (3.4-5.0); ANION GAP 11.5 mmol/L (8-16); BILIRUBIN - TOTAL 0.22 mg/dL (0.2-1.3); CARBON DIOXIDE 22.1 mmol/L (21.0-32.0); CREATININE - SERUM 4.4 mg/dL (0.6-1.3); POTASSIUM - SERUM 3.6 mmol/L (3.5-5.1); PROTEIN - SERUM 5.3 g/dL (6.4-8.2)
[2020-05-02 06:43] LABS: EOSINOPHILS 2.4 % (0-7); HEMATOCRIT 28.9 % (36.0-48.0); HEMOGLOBIN 9.4 g/dL (12-16); IMMATURE GRANULOCYTES 1.1 % (0-5); LYMPHOCYTE ABS# 2.06 10x3/uL (1.18-3.74); LYMPHOCYTES 22.7 % (15-50); MCH 27.6 pg (26.0-34.0); MCHC 32.5 g/dL (31.0-37.0); MEAN PLATELET VOLUME 8.8 fL (7.4-10.4); MONOCYTES 10.7 % (2-11); NEUTROPHIL ABS# 5.56 10x3/uL (1.56-6.13); NEUTROPHILS 61.1 % (40-80); PLATELET COUNT 522 10x3/uL (130-400); RDW 16.6 % (11.5-14.5); WBC 9.1 10x3/uL (4.8-10.8)
[2020-05-02 07:43] VITALS: BP 140/61
[2020-05-02 12:35] VITALS: BP 154/61
--- NOTE | 2020-05-02 13:05 | NUR ---
Nutrition follow-up: Pt sleeping during RD rounds. Breakfast at bedside Diet order: Consistent CHO puree with nectar thick liquids PO intake 05/01/20 wwas ~75% of 2 meals; much improved po intake Labs reviewed Wt: no new wt since admit RDN ordered Ensure with meals; K, glucose, PO4 WNL at this time RDN will reassess 05/05/20
--- NOTE | 2020-05-02 13:36 | NUR ---
PATIENT UP IN CHAIR AT THIS TIME PER PT. IV INTACT. CALL LIGHT WITHIN REACH.
--- NOTE | 2020-05-02 14:55 | NUR ---
OT NOTE: PT VERY LETHARGIC BUT EASILY AROUSED. AGREEABLE TO GET UP INTO CHAIR; BED MOB INCLUDING ROLLING SIDE TO SIDE WITH MAX ASSIST TODAY. CONTINUED CUEING TO STAY ON TASK; EOB SITTING WITH MOD ASSIST. MAX ASSIST X 2 FOR TRANSFER TO CHAIR. ATTEMPTED TO ASSIST PT WITH FEEDING. PT WAS ABLE TO PERFORM WITH ONLY OCCASSIONAL ASSIST, HOWEVER, DID NOT LIKE ANYTHING ON TRAY. PT REQUIRES ENCOURAGEMENT TO PARTICIPATE IN ADLS. SUNNY WRIGHT, OTR/L [phone]
--- NOTE | 2020-05-02 15:07 | NUR ---
UP AND BACK WITH AMANDA DICKERSON IS STAYING AWAKE MORE TODAY BUT STILL VERY WEAK
--- NOTE | 2020-05-02 18:30 | NUR ---
PATIENT IN BED WITH IV INTACT. NO COMPLAINTS OR SIGNS OF DISTRESS. CALL LIGHT WITHIN REACH.
--- NOTE | 2020-05-02 20:30 | NUR ---
PT SITTING UP IN BED WITHOUT DISTRESS, TOOK HS MEDS WITHOUT DIFFICULTY WTIH THICKENED COLA. DENIES OTHER NEEDS AT THIS TIME. COOPER IN PLACE. IV RIGHT FA INFUSING D5W @ 10. BED ALARM ON, CL IN REACH
[2020-05-02 21:11] VITALS: BP 125/87
[2020-05-03 05:36] LABS: BASOPHILS 2.2 % (0-2); EOSINOPHILS 3.4 % (0-7); HEMATOCRIT 29.9 % (36.0-48.0); HEMOGLOBIN 9.7 g/dL (12-16); IMMATURE GRANULOCYTES 0.9 % (0-5); LYMPHOCYTE ABS# 1.91 10x3/uL (1.18-3.74); LYMPHOCYTES 23.3 % (15-50); MCH 27.6 pg (26.0-34.0); MCHC 32.4 g/dL (31.0-37.0); MCV 84.9 fL (80.0-100.0); MEAN PLATELET VOLUME 8.5 fL (7.4-10.4); MONOCYTES 10.4 % (2-11); NEUTROPHILS 59.8 % (40-80); PLATELET COUNT 495 10x3/uL (130-400); RBC 3.52 10x6/uL (4.00-5.40); RDW 16.6 % (11.5-14.5); WBC 8.2 10x3/uL (4.8-10.8)
[2020-05-03 05:52] LABS: ALBUMIN 1.9 g/dL (3.4-5.0); ANION GAP 12.2 mmol/L (8-16); BILIRUBIN - TOTAL 0.23 mg/dL (0.2-1.3); CALCIUM 8.3 mg/dL (8.5-10.1); CARBON DIOXIDE 22.5 mmol/L (21.0-32.0); CREATININE - SERUM 4.3 mg/dL (0.6-1.3); POTASSIUM - SERUM 3.7 mmol/L (3.5-5.1); PROTEIN - SERUM 5.7 g/dL (6.4-8.2)
--- NOTE | 2020-05-03 10:00 | NUR ---
SPOKE WITH LAINA IN PHARMACY RE.. RETACRIT INJECTION
--- NOTE | 2020-05-03 10:24 | NUR ---
ASSESSMENT PER FLOW SHEET. PATIENT IS WITHOUT DISTRESS.SHE REFUSES SOME OF FPO MEDS AFTER I OPENED THEM. SHE DECLINES IS AND SCD'S AT THIS TIME. FALL PREVENTION WITH RYLAN.
[2020-05-03 12:12] VITALS: BP 174/59
--- NOTE | 2020-05-03 12:37 | NUR ---
OT NOTE: PT ASLEEP BUT EASILY AROUSED. PT REMAINS CONFUSED..STATING THAT SHE HAS TO GO TO THE STORE..PT CONTINUALLY PERSEVERATING ON THIS. WORKED WITH PT ON FEEDING. PT IS ABLE TO FEED SELF, HOWEVER, DOES NOT LIKE ANY OF THE FOOD. PT WAS AGREEABLE TO DRINK STRAWBERRY INSURE, AND DRANK APPROX 3/4 OF BOTTLE. PT ABLE TO WASH FACE WITH R HAND AND WASH CLOTH; BED MOB WITH MAX ASSIST.. PT DID NOT WANT TO STAY SITTING ON EOB AND DID NOT WANT TO TRANSFER TO CHAIR TODAY. SUNNY WRIGHT, OTR/L [phone]
--- NOTE | 2020-05-03 15:53 | NUR ---
REFUSED BATH TODAY. SHE HAS ALSO REFUSED SOME MEDS. DOES NOT WANT TO DO IS. SHE IS WEARING SCD'S. MONITOR
--- NOTE | 2020-05-03 20:00 | NUR ---
PT SITTING UP IN BED WITHOUT DISTRESS, ORIENTED TO SELF. NO IV, REFUSED TO HAVE ONE PLACED. COOPER IN PLACE. DENIES NEEDS. CL IN REACH, BED ALARM ON
[2020-05-03 20:59] VITALS: BP 157/58
--- NOTE | 2020-05-03 22:00 | NUR ---
PT GIVEN BED BATH AT THIS TIME, LINENS CHANGED, COOPER CARE, APPLIED MEPILEX TO STAGE 2 ON COCCYX. SDS ON BILAT. DENIES OTHER NEEDS
[2020-05-04] VITALS: BP 152/63
--- NOTE | 2020-05-04 04:10 | NUR ---
PT REFUSING VITALS AT THIS TIME. STATES SHE IS GOING HOME
[2020-05-04 06:53] LABS: ALBUMIN 2.1 g/dL (3.4-5.0); ANION GAP 13.1 mmol/L (8-16); BILIRUBIN - TOTAL 0.28 mg/dL (0.2-1.3); CALCIUM 8.6 mg/dL (8.5-10.1); CARBON DIOXIDE 23.9 mmol/L (21.0-32.0); CREATININE - SERUM 4.1 mg/dL (0.6-1.3); PROTEIN - SERUM 5.5 g/dL (6.4-8.2)
[2020-05-04 07:36] LABS: BASOPHILS 1.9 % (0-2); EOSINOPHILS 3.1 % (0-7); HEMOGLOBIN 10.1 g/dL (12-16); LYMPHOCYTE ABS# 1.53 10x3/uL (1.18-3.74); LYMPHOCYTES 17.5 % (15-50); MCH 27.5 pg (26.0-34.0); MCHC 32.6 g/dL (31.0-37.0); MCV 84.5 fL (80.0-100.0); MEAN PLATELET VOLUME 8.6 fL (7.4-10.4); MONOCYTES 9.4 % (2-11); NEUTROPHIL ABS# 5.84 10x3/uL (1.56-6.13); NEUTROPHILS 67.1 % (40-80); PLATELET COUNT 528 10x3/uL (130-400); RBC 3.67 10x6/uL (4.00-5.40); RDW 16.4 % (11.5-14.5); WBC 8.7 10x3/uL (4.8-10.8)
[2020-05-04 08:16] VITALS: BP 199/75
--- NOTE | 2020-05-04 13:08 | NUR ---
PATIENT ATE HALF OF CP OF LINDA, STATES SHE DOES NOT LIKE PUREED FOOD AND WANTS A HAMBURGER OR PIZZA. PATIENT FAMILY BROUGHT HER CHICKEN OVER THE WEEKEND AND PATIENT ATE. WILL CONTINUE WITH PLAN OF CARE
--- NOTE | 2020-05-04 13:44 | NUR ---
PATIENT TOTAL ASST X2 TO GET UP TO BEDSIDE. PATIENT MAX ASST TO STAY SITTING UP RIGHT.
--- NOTE | 2020-05-04 15:48 | NUR ---
OT NOTE: BED MOB WITH MAX ASSIST. PT VERY WEAK; MAX X 2 FOR SUPINE TO SIT; MAX ASSIST FOR SITTING BALANCE; MAX ASSIST WITH ALL BASIC ADLS. SUNNY WRIGHT, OTR/L [phone]
--- NOTE | 2020-05-04 16:49 | NUR ---
OT NOTE: PT REQUIERED TOTAL A FOR SUPINE TO SIT. PT EXHIBITED POOR TRUNK CONTROL. PT REQUIRED MAX A FOR STATIC SITTING BALANCE AT EOB. PT REQUIRED TOTAL A FOR ORAL HYGIENE. [phone] THANK YOU,LEELA LUCAS
[2020-05-04 17:06] VITALS: BP 177/68
--- NOTE | 2020-05-04 19:30 | NUR ---
PT LYING IN BED SLEEPING WITHOUT DISTRESS, SCDS ON BILAT. BED ALARM ON, CL IN REACH
[2020-05-04 20:00] VITALS: BP 140/62
[2020-05-05] VITALS: BP 159/77
[2020-05-05 04:00] VITALS: BP 127/69
[2020-05-05 06:37] LABS: ALBUMIN 2.1 g/dL (3.4-5.0); ALKALINE PHOSPHATASE 59 U/L (30-120); BASOPHILS 2.9 % (0-2); BILIRUBIN - TOTAL 0.23 mg/dL (0.2-1.3); CALC OSMOLALITY 294 mosm/kg (275-300); CALCIUM 8.8 mg/dL (8.5-10.1); CHLORIDE - SERUM 115 mmol/L (98-107); CREATININE - SERUM 4.1 mg/dL (0.6-1.3); GLUCOSE 77 mg/dL (74-106); HEMATOCRIT 31.2 % (36.0-48.0); HEMOGLOBIN 10.2 g/dL (12-16); IMMATURE GRANULOCYTES 0.8 % (0-5); LYMPHOCYTES 25.5 % (15-50); MCH 27.8 pg (26.0-34.0); MCHC 32.7 g/dL (31.0-37.0); MEAN PLATELET VOLUME 8.5 fL (7.4-10.4); NEUTROPHIL ABS# 4.92 10x3/uL (1.56-6.13); NEUTROPHILS 59.8 % (40-80); PLATELET COUNT 521 10x3/uL (130-400); POTASSIUM - SERUM 3.8 mmol/L (3.5-5.1); RBC 3.67 10x6/uL (4.00-5.40); RDW 16.5 % (11.5-14.5); SODIUM 147 mmol/L (136-145); UREA NITROGEN 23 mg/dL (7-18); WBC 8.2 10x3/uL (4.8-10.8); eGFR NON AFRICAN AMERICAN 12 mL/min (90-120)
[2020-05-05 06:38] LABS: ALT (SGPT) < 6 U/L (10-68)
--- NOTE | 2020-05-05 08:00 | NUR ---
ASSESSMENT PER FLOW SHEET. PATIENT IS WITHOUT DISTRESS.FALL PREVENTION WITH RYLAN.DOOR OPEN
[2020-05-05 08:55] VITALS: BP 146/68
[2020-05-05] MEDS ORDERED: HYDRALAZINE HCL50 MG PO (10:50)
[2020-05-05] MEDS ORDERED: COREG12.5 MG PO (10:50)
[2020-05-05] MEDS ORDERED: PROCARDIA XL PO (10:50)
[2020-05-05] MEDS ORDERED: TESSALON PERLE100 MG PO (10:51)
[2020-05-05] MEDS ORDERED: ZYPREXA10 MG PO (10:51)
[2020-05-05] MEDS ORDERED: GEODON20 M1 IM (10:51)
[2020-05-05] MEDS ORDERED: ASPIRIN EC325 MG PO (10:51)
[2020-05-05] MEDS ORDERED: PLAVIX75 MG PO (10:52)
[2020-05-05] MEDS ORDERED: MUCINEX600 MG PO (10:52)
[2020-05-05] MEDS ORDERED: VITAMIN D PO (10:52)
[2020-05-05 12:37] VITALS: BP 128/57
--- NOTE | 2020-05-05 12:49 | NUR ---
[facility] TO [facility] [place],SPOKE WITH LEYLA.
--- NOTE | 2020-05-05 13:03 | NUR ---
CALL TO [facility] FOR TRANSPORT,JAMISON.
--- NOTE | 2020-05-05 15:52 | NUR ---
OT NOTE: PT IS LETHARGIC. PT REQUIRED TOTAL A FOR ORAL HYGIENE. PT COMPLETED FACE HYGIENE WITH TOTAL A. PT COMPLETED BUE PROM AND POSITIONING. NURSING AWARE OF PT LETHARGY. [phone] THANK YOU,LEELA LUCAS
[2020-05-05 16:42] VITALS: BP 128/52
--- NOTE | 2020-05-05 19:24 | NUR ---
[facility] [place] WITH BELONGINGS
== END 2020-05-05 19:25 | DRG 682 ==
LOC: D.ER 18:15 → D.EDHOLD 19:24 → D.ICU 19:24 → D.MS 19:24 → D.ICU 04-08 08:48 → D.MS 04-13 20:43
PROVIDERS: Emergency Medicine; Family Medicine; Internal Medicine; Internal Medicine Nephrology; ADMIT Family Medicine; ATTEND Family Medicine
PROC: 05HM33Z Insertion of Infusion Device into Right Internal Jugular Vein, Percutaneous Approach (ICD-10-PCS; principal; 2020-04-12)
PROC: B543ZZA Ultrasonography of Right Jugular Veins, Guidance (ICD-10-PCS; 2020-04-12)
DX: N17.9 Acute kidney failure, unspecified (principal); G93.41 Metabolic encephalopathy; J18.9 Pneumonia, unspecified organism; E43 Unspecified severe protein-calorie malnutrition; I13.2 Hypertensive heart and chronic kidney disease with heart failure and with stage 5 chronic kidney disease, or end stage renal disease; E87.0 Hyperosmolality and hypernatremia; E87.2 Acidosis; N39.0 Urinary tract infection, site not specified; N18.5 Chronic kidney disease, stage 5; E87.5 Hyperkalemia; I50.9 Heart failure, unspecified; E78.5 Hyperlipidemia, unspecified; E11.22 Type 2 diabetes mellitus with diabetic chronic kidney disease; D63.1 Anemia in chronic kidney disease; R79.89 Other specified abnormal findings of blood chemistry; F03.90 Unspecified dementia, unspecified severity, without behavioral disturbance, psychotic disturbance, mood disturbance, and anxiety; I15.0 Renovascular hypertension; D50.9 Iron deficiency anemia, unspecified